=== PATIENT | male | born 1960 | race Caucasian/White ===

== ENCOUNTER 2017-02-17 07:55 | Emergency (ER) | payer MEDICAID ==
[~2017-02-17] VITALS: Ht 182.9 cm; Wt 95.3 kg
--- NOTE | 2017-02-17 07:55 | NUR ---
Patient was BIB [place] [employer] and taken to bed 11.
[2017-02-17 08:07] VITALS: BP 161/102
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
[2017-02-17 08:45] LABS: HEMOGLOBIN 17.3 g/dL (12.0-18.0); MEAN CORPUSCULAR HEMOGLOBIN 31 pg (27-31); MEAN CORPUSCULAR HGB CONC 33 g/dL (33-37); MEAN CORPUSCULAR VOLUME 93 fL (80-94); PLATELET COUNT (AUTO) 352 K/uL (140-450); RED BLOOD CELL COUNT(AUTO) 5.59 MIL/uL (4.20-6.10); WHITE BLOOD COUNT (AUTO) 12.1 K/uL (4.8-10.8)
[2017-02-17 08:54] LABS: CARBON DIOXIDE 31.6 mmol/L (21-32); CREATININE 1.2 mg/dL (0.7-1.3); POTASSIUM 3.4 mmol/L (3.5-5.1)
[2017-02-17 08:56] LABS: ANION GAP 3.2 (8-16)
[2017-02-17 09:07] LABS: EOSINOPHILS % (MANUAL) 3 % (0-4); LYMPHOCYTES % (MANUAL) 7 % (20-46); MONOCYTES % (MANUAL) 7 % (5-12)
--- NOTE | 2017-02-17 09:18 | NUR ---
PT SLEEPING;NO ACUTE DISTRESS NOTED;WILL CONTINUE TO MONITOR PT.
--- NOTE | 2017-02-17 09:23 | NUR ---
PT STATES HE CAN'T GIVE URINE AT THIS TIME;
--- NOTE | 2017-02-17 09:26 | NUR ---
WENT TO CT SCAN ACCOMPANIED BY ROMAN GARCIA.
--- NOTE | 2017-02-17 09:57 | NUR ---
[facility]
--- NOTE | 2017-02-17 10:10 | NUR ---
[place] [employer] AT BEDSIDE.
[2017-02-17 11:13] LABS: BARBITURATE, URINE NEG. ng/ml (NEG <=200); BENZODIAZEPINE, URINE NEG. ng/mL (NEG <=200); CANNABINOID, URINE NEG. ng/mL (NEG <=50); COCAINE, URINE POS. ng/mL (NEG <=300); OPIATE, URINE NEG. ng/mL (NEG <=2000); PHENCYCLIDINE SCREEN,URINE NEG. ng/mL (NEG <=25)
--- NOTE | 2017-02-17 11:26 | NUR ---
PT SLEEPING;NO ACUTE DISTRESS NOTED;PD AT BEDSIDE.WILL CONTINUE TO MONITOR PT.
[2017-02-17 12:18] VITALS: BP 144/77
--- NOTE | 2017-02-17 12:18 | NUR ---
Patient discharged with v/s stable. Written and verbal after care instructions given and explained. Patient verbalized understanding. Ambulatory with steady gait. All questions addressed prior to discharge. Advised to follow up with PMD.
== END 2017-02-17 12:18 ==
LOC: MED 07:55
DX: Z02.89 Encounter for other administrative examinations (principal); S39.81XA Other specified injuries of abdomen, initial encounter; S00.81XA Abrasion of other part of head, initial encounter; S29.8XXA Other specified injuries of thorax, initial encounter; S09.8XXA Other specified injuries of head, initial encounter; F14.90 Cocaine use, unspecified, uncomplicated; F19.90 Other psychoactive substance use, unspecified, uncomplicated; E87.1 Hypo-osmolality and hyponatremia; H57.02 Anisocoria; F17.210 Nicotine dependence, cigarettes, uncomplicated; Y04.2XXA Assault by strike against or bumped into by another person, initial encounter; Y93.89 Activity, other specified; Y92.89 Other specified places as the place of occurrence of the external cause; Y99.8 Other external cause status
CPT/HCPCS: 36415; 70450; 71260; 72125; 74177; 80048; 80305; 85025; 99285; G0482; Q9967

== ENCOUNTER 2018-08-16 12:54 | Inpatient (IN) | payer MEDICAID ==
[~2018-08-16] VITALS: Ht 182.9 cm; Wt 90.7 kg
[2018-08-16 13:10] VITALS: BP 161/74
--- NOTE | 2018-08-16 13:10 | NUR ---
PATIENT PRESENTS TO ED WITH C/O CELLULITIS TO BOTH ARMS. LEFT ARM IS RED AND WARM TOUCH FROM FINGERS TO ELBOW. RT ARM HAS CELLULITS NODULE IN MIDDLE OF FOREARM WITH FLUID FILLED SAC. PATIENT STATES PAIN IS 10/10. +CMS/PULSES INTACT. PT AAOX4 WITH EVEN AND STEADY GAIT; LUNGS CLEAR BL; HR EVEN AND REGULAR; HOB ELEVATED; BEDRAILS UP X2; BED DOWN. ER MD MADE AWARE OF PT STATUS.
--- NOTE | 2018-08-16 13:29 | NUR ---
PATIENT TO BED 6 AT THIS TIME.
[2018-08-16] MEDS ORDERED: NACL 0.9% 1,000 ML IV ONE (13:53)
[2018-08-16] MEDS ORDERED: LIDOCAINE/EPI 1% 1:100000 20 ML VIAL INJ ONE (13:55)
[2018-08-16] MEDS ORDERED: VANCOMYCIN 1,000 MG in DEXTROSE 5% 250 ML IV ONE (13:55)
[2018-08-16] MEDS ORDERED: PIPERACILLIN/TAZOBACTAM 3.375 GM in DEXTROSE 5% 50 ML IV ONE (13:55)
[2018-08-16] MEDS ORDERED: KETOROLAC 30 MG/ML VIAL IVP ONE (13:55)
[2018-08-16 14:36] LABS: BASOPHILS # (AUTO) 0.1 K/uL (0.00-0.22); BASOPHILS % (AUTO) 0.5 % (0.0-2.0); EOSINOPHILS # (AUTO) 0.1 K/uL (0-0.4); EOSINOPHILS % (AUTO) 0.8 % (0.0-4.0); HEMATOCRIT 37.6 % (36-52); HEMOGLOBIN 12.8 g/dL (12.0-18.0); LYMPHOCYTES # (AUTO) 1.1 K/uL (2.0-11.5); LYMPHOCYTES % (AUTO) 6.9 % (20.5-51.1); MEAN CORPUSCULAR HEMOGLOBIN 29 pg (27-31); MEAN CORPUSCULAR HGB CONC 34 g/dL (33-37); MEAN CORPUSCULAR VOLUME 85.8 fL (80-94); MONOCYTES # (AUTO) 1.1 K/uL (0.8-1.0); MONOCYTES % (AUTO) 6.7 % (1.7-9.3); NEUTROPHILS # (AUTO) 13.5 K/uL (1.8-7.7); NEUTROPHILS % (AUTO) 85.1 % (42.2-75.2); PLATELET COUNT (AUTO) 320 K/uL (140-450); RED BLOOD CELL COUNT(AUTO) 4.38 MIL/uL (4.20-6.10); WHITE BLOOD COUNT (AUTO) 15.9 K/uL (4.8-10.8)
[2018-08-16] MEDS ORDERED: PIPERACILLIN/TAZOBACTAM 3.375 GM VIAL IV ONE (14:46)
[2018-08-16 15:08] LABS: ANION GAP 8.6 (8-16); CARBON DIOXIDE 28.4 mmol/L (21-32); CREATININE 0.8 mg/dL (0.7-1.3); PROTHROMBIN TIME 10.3 secs (10.8-13.4)
[2018-08-16 15:14] LABS: ALBUMIN 2.8 g/dL (3.4-5.0); TOTAL BILIRUBIN 0.8 mg/dL (0.0-1.0)
[2018-08-16] MEDS ORDERED: VANCOMYCIN 1,000 MG VIAL ONE (15:44)
--- NOTE | 2018-08-16 16:10 | NUR ---
I&D Procedure done by REJI Morgan amt of bleeding noted. 04/17 " DUSTY FORM PACKING USED. Pt TOLERATED PROCEDURE WELL.
[2018-08-16] MEDS: NACL 0.9% 1,000 ML IV SCH (16:21)
[2018-08-16] MEDS ORDERED: DOCUSATE SODIUM 100 MG GELCAP PO PRN (16:25)
[2018-08-16] MEDS ORDERED: ONDANSETRON 4 MG/2 ML VIAL IM/IVP PRN (16:25)
[2018-08-16] MEDS ORDERED: LORazepam 2 MG/ML VIAL IM/IVP PRN (16:25)
[2018-08-16] MEDS ORDERED: ZOLPIDEM 5 MG TAB PO PRN (16:25)
[2018-08-16] MEDS ORDERED: KCL 20 MEQ/WATER INJ PREMIX 100 ML IV ONE (16:30)
[2018-08-16] MEDS ORDERED: VANCOMYCIN PER PHARMACY MC PRN (16:30)
[2018-08-16] MEDS ORDERED: cefTRIAXone 2,000 MG in DEXTROSE 5% 100 ML IV SCH (16:50)
--- NOTE | 2018-08-16 17:05 | NUR ---
RECEIVED PT REPORT FROM ED NURSE LISA. PT IS AWAKE AND ALERT X 4, AND IS AMBULATORY. PT IS ON ROOM AIR. PT WAS PLACED ON TELEMETRY MONITORING. MRSA SWAB TAKEN. THE LEFT ARM IS NOTED TO BE REDDENED AND SWOLLEN; RIGHT ARM HAS A DRY DRESSING WITH NOTED MINIMAL DRAINAGE OVER THE I&D SITE THAT WAS PERFORMED IN THE ED. VITAL SIGNS UPON ADMISSION: BP 159/86, HR 81, O2 100%, TEMP 98.4, RR 18. PT IS C/O 9/10 PAIN IN THE LUE, WILL MEDICATE SOON APPROPRIATE. PT ORIENTED TO ROOM AND GIVEN A CALL LIGHT WITHIN REACH. WILL CONTINUE TO MONITOR.
[2018-08-16 17:10] VITALS: BP 159/86
[2018-08-16 17:10] LABS: CHOL/HDL RATIO 2.1 (1-4.5); PHOSPHORUS 2.5 mg/dL (2.5-4.9); THYROID STIMULATING HORMONE 0.4 uIU/mL (0.34-3.74)
--- NOTE | 2018-08-16 17:10 | NUR ---
Pt admitted to telemetry floor Rm 106A, report given to RIMA Palomo . Transfer of care at this time.
--- NOTE | 2018-08-16 17:26 | NUR ---
PT SEEN BY DR DORSEY.
--- NOTE | 2018-08-16 17:34 | NUR ---
OBTAINED PT'S CONSENT FOR LUE CT SCAN WITH CONTRAST. RADIOLOGY NOTIFIED THAT PT IS READY FOR STAT CT.
--- NOTE | 2018-08-16 17:50 | NUR ---
PT OFF THE FLOOR FOR CT SCAN
[2018-08-16] MEDS ORDERED: NACL 0.9% IRR 250 ML BOTTLE IR PRN (18:10)
--- NOTE | 2018-08-16 18:17 | NUR ---
PT BACK ON UNIT FROM CT SCAN
--- NOTE | 2018-08-16 19:05 | NUR ---
URINE SAMPLE COLLECTED AND TAKEN TO LAB PER MD ORDER.
--- NOTE | 2018-08-16 19:20 | NUR ---
PT ENDORSED TO SENIOR MEDICAL DIRECTOR NURSE IN STABLE CONDITION.
--- NOTE | 2018-08-16 19:23 | NUR ---
RECEIVED REPORT FROM AM NURSEALDO. PT LAYING IN BED, AWAKE WITH NO VISIBLE SIGNS OF DISTRESS. PT AMBULATORY. IV 20G RT LOWER FA INFUSING WELL. S/P I/D OF RT FA ABSCESS. SAFETY PRECAUTIONS IN PLACE. CALL LIGHT WITH IN REACH.
--- NOTE | 2018-08-16 19:30 | NUR ---
DR ADAME IS AWARE OF CRITICAL CT SCAN OF PT'S LUE. DR ADAME ALSO AWARE OF PT'S ELEVATED BLOOD PRESSURE UPON ADMISSION TODAY.
[2018-08-16 19:41] LABS: APPEARANCE,URINE CLEAR (CLEAR); BILIRUBIN,URINE 1+ (NEGATIVE); BLOOD, URINE NEGATIVE (NEGATIVE); COLOR,URINE ORANGE (YELLOW); LEUKOCYTE ESTERASE ,URINE NEGATIVE (NEGATIVE); NITRITE, URINE NEGATIVE (NEGATIVE); PH,URINE 6.5 (5.0-9.0); UGLUCOSE TRACE (NEGATIVE)
[2018-08-16 19:50] LABS: BARBITURATE, URINE NEG. ng/ml (NEG <=200); BENZODIAZEPINE, URINE NEG. ng/mL (NEG <=200); CANNABINOID, URINE NEG. ng/mL (NEG <=50); COCAINE, URINE NEG. ng/mL (NEG <=300); OPIATE, URINE POS. ng/mL (NEG <=2000); PHENCYCLIDINE SCREEN,URINE NEG. ng/mL (NEG <=25)
[2018-08-16 20:00] VITALS: BP 137/77
[2018-08-16] MEDS ORDERED: PIPERACILLIN/TAZOBACTAM 3.375 GM in DEXTROSE 5% 50 ML IV SCH (21:00)
[2018-08-16] MEDS: KETOROLAC 30 MG/ML VIAL IVP PRN (22:41)
[2018-08-17] VITALS: BP 163/65
--- NOTE | 2018-08-17 00:10 | NUR ---
SPOKE WITH DR. ADAME REGARDING PT BP OF 163/65. DR ADVISED TO CONTINUE TO MONITOR. WILL CONTINUE TO MONITOR
[2018-08-17] MEDS ORDERED: VANCOMYCIN 1,500 MG in DEXTROSE 5% 500 ML IV SCH (01:00)
[2018-08-17] MEDS ORDERED: VANCOMYCIN 1,000 MG VIAL ONE (01:51)
[2018-08-17 04:00] VITALS: BP 173/83
--- NOTE | 2018-08-17 04:11 | NUR ---
SPOKE TO DR. ADAME ABOUT PTS BP 173/83 AND PTS PAIN LEVEL 01/21. ORDERS TO FOLLOW.
[2018-08-17] MEDS: MORPHINE SULFATE 2 MG/ML SYR IVP PRN ×3 (04:33→19:33)
[2018-08-17] MEDS: KETOROLAC 30 MG/ML VIAL IVP PRN (04:36)
[2018-08-17] MEDS: ACETAMINOPHEN 325 MG TAB PO PRN (04:37)
--- NOTE | 2018-08-17 04:37 | NUR ---
TYLENOL GIVEN FOR TEMP OF 100.5
--- NOTE | 2018-08-17 05:37 | NUR ---
TEMP REASSESSED AT THIS TIME, CURRENT TEMP 98.6
[2018-08-17 06:37] LABS: BASOPHILS # (AUTO) 0.1 K/uL (0.00-0.22); BASOPHILS % (AUTO) 0.5 % (0.0-2.0); EOSINOPHILS # (AUTO) 0.1 K/uL (0-0.4); HEMATOCRIT 38.5 % (36-52); HEMOGLOBIN 13.1 g/dL (12.0-18.0); LYMPHOCYTES # (AUTO) 1.4 K/uL (2.0-11.5); LYMPHOCYTES % (AUTO) 9.7 % (20.5-51.1); MEAN CORPUSCULAR HEMOGLOBIN 29 pg (27-31); MEAN CORPUSCULAR HGB CONC 34 g/dL (33-37); MEAN CORPUSCULAR VOLUME 85.8 fL (80-94); MONOCYTES # (AUTO) 1.1 K/uL (0.8-1.0); MONOCYTES % (AUTO) 7.9 % (1.7-9.3); NEUTROPHILS # (AUTO) 11.7 K/uL (1.8-7.7); NEUTROPHILS % (AUTO) 80.9 % (42.2-75.2); PLATELET COUNT (AUTO) 323 K/uL (140-450); RED BLOOD CELL COUNT(AUTO) 4.49 MIL/uL (4.20-6.10); RED CELL DISTRIBUTION WIDTH 14.4 % (11.6-13.7); WHITE BLOOD COUNT (AUTO) 14.4 K/uL (4.8-10.8)
--- NOTE | 2018-08-17 07:00 | NUR ---
CONSENT SIGNED FOR I/D OF LT FA ABSCESS BY DR. HANEY. PT IS NPO. PT WILL BE ENDORSED TO THE DAY SHIFT NURSE FOR CARE.
--- NOTE | 2018-08-17 07:15 | NUR ---
RECEIVED REPORT FROM DISPATCHER MAINTENANCE NURSE. PT IS AAOX4, RIGHT ARM I&D WAS DONE IN ER, DRESSING CLEAN AND INTACT. MADE PT AWARE THE HE IS GOING TO HAVE LEFT ARM I&D TODAY, NPO FOR NOW. PT LAYING IN BED, NO SIGNS OF DISTRESS IN ROOM AIR. PT AMBULATORY AT BASELINE. IV CATH TO RIGHT FA, 20G, INTACT, INFUSING WELL. SAFETY PRECAUTIONS IN PLACE. CALL LIGHT WITH IN REACH.
[2018-08-17 07:42] LABS: CARBON DIOXIDE 25.9 mmol/L (21-32); CREATININE 0.8 mg/dL (0.7-1.3)
[2018-08-17 07:44] LABS: POTASSIUM 2.9 mmol/L (3.5-5.1)
[2018-08-17 07:47] LABS: PHOSPHORUS 2.5 mg/dL (2.5-4.9)
[2018-08-17 08:00] VITALS: BP 164/84
[2018-08-17] MEDS: LACTOBACILLUS RHAMNOSUS GG 1 EACH CAP PO SCH (08:36)
--- NOTE | 2018-08-17 08:43 | NUR ---
PATIENT HAS BEEN SCREENED AND CATEGORIZED HIGH NUTRITION RISK. PATIENT WILL BE SEEN WITHIN 1-2 DAYS OF ADMISSION. 08/17/18-08/18/[address]
[2018-08-17] MEDS: NACL 0.9% 1,000 ML IV SCH ×2 (09:01→17:38)
--- NOTE | 2018-08-17 09:01 | NUR ---
HEPARIN HELD, PT MIGHT HAVE I&D TODAY.
[2018-08-17] MEDS: KCL 20 MEQ/WATER INJ PREMIX 100 ML IV SCH ×2 (09:11→15:03)
[2018-08-17] MEDS ORDERED: LIDOCAINE 2% 100 MG/5 ML SYR IVP ONE (09:38)
[2018-08-17] MEDS ORDERED: PROPOFOL 200 MG/20 ML VIAL IV ONE (09:38)
[2018-08-17] MEDS ORDERED: SEVOFLURANE 250 ML BTL INH ONE (09:38)
--- NOTE | 2018-08-17 09:38 | NUR ---
PT TAKEN BY OR NURSE. NO S/S OF ACUTE RESPIRATORY DISTRESS IN RM AIR.
[2018-08-17] MEDS ORDERED: HYDROGEN PEROXIDE 3% 240 ML BTL TP ONE (09:41)
[2018-08-17] MEDS ORDERED: MIDAZOLAM 2 MG/2 ML VIAL ONE (09:56)
[2018-08-17] MEDS ORDERED: fentaNYL 0.05 MG/ML VIAL ONE (09:56)
--- NOTE | 2018-08-17 09:57 | NUR ---
WOUND CARE EVAL. PENDING, PT. IS NOT AVAILABLE THIS TIME FOR WOUND EVAL. AND PER PRIMARY RN PT IS SCHEDULED FOR SURGERY I&D THIS AM. PT IS OKAY TO BE VISITED AFTER PROCEDURE.
[2018-08-17] MEDS ORDERED: ONDANSETRON 4 MG/2 ML VIAL IVP PRN (10:10)
[2018-08-17] MEDS: HYDROmorphone 1 MG/ML AMP IVP PRN ×8 (11:30→12:05)
[2018-08-17] MEDS ORDERED: HYDROmorphone PFS 2 MG/ML SYR ONE ×2 (11:32→11:57)
[2018-08-17] MEDS ORDERED: KETOROLAC 30 MG/ML VIAL IVP SCH (12:00)
[2018-08-17] MEDS ORDERED: KETOROLAC 30 MG/ML VIAL ONE (12:02)
[2018-08-17 12:45] VITALS: BP 142/79
[2018-08-17 12:51] LABS: BASOPHILS % (AUTO) 0.3 % (0.0-2.0); EOSINOPHILS # (AUTO) 0.1 K/uL (0-0.4); EOSINOPHILS % (AUTO) 0.4 % (0.0-4.0); HEMATOCRIT 36.6 % (36-52); HEMOGLOBIN 12.5 g/dL (12.0-18.0); LYMPHOCYTES # (AUTO) 1.1 K/uL (2.0-11.5); LYMPHOCYTES % (AUTO) 7.8 % (20.5-51.1); MEAN CORPUSCULAR HEMOGLOBIN 29 pg (27-31); MEAN CORPUSCULAR HGB CONC 34 g/dL (33-37); MEAN CORPUSCULAR VOLUME 85.8 fL (80-94); MONOCYTES # (AUTO) 1.3 K/uL (0.8-1.0); MONOCYTES % (AUTO) 8.6 % (1.7-9.3); NEUTROPHILS # (AUTO) 12.1 K/uL (1.8-7.7); NEUTROPHILS % (AUTO) 82.9 % (42.2-75.2); PLATELET COUNT (AUTO) 311 K/uL (140-450); RED BLOOD CELL COUNT(AUTO) 4.27 MIL/uL (4.20-6.10); RED CELL DISTRIBUTION WIDTH 14.1 % (11.6-13.7); WHITE BLOOD COUNT (AUTO) 14.6 K/uL (4.8-10.8)
[2018-08-17 13:00] LABS: ANION GAP 7.8 (8-16); CARBON DIOXIDE 29.3 mmol/L (21-32); CREATININE 0.9 mg/dL (0.7-1.3); POTASSIUM 3.1 mmol/L (3.5-5.1)
--- NOTE | 2018-08-17 13:05 | NUR ---
PT IS BACK FROM OR, VITALS TAKEN. LEFT ARM HAS NEW DRESSING, CLEAN AND INTACT.
--- NOTE | 2018-08-17 13:20 | NUR ---
PT C/O PAIN ON RIGHT FA IV SITE. SEEMS A LITTLE SWELLING, FLUSHED AND NO BLOOD RETURN. CHARGE NURSE SOLA STARTED A NEW IV ON THE RIGHT UA, 22G. PT TOLERATED WELL. LEFT ARM S/P I&D, DRESSING STILL CLEAN AND DRY, ELEVATED WITH PILLOW.
[2018-08-17] MEDS: VANCOMYCIN 1GM/DEXT 5% PREMIX 200 ML IV SCH ×2 (13:31→20:40)
--- NOTE | 2018-08-17 13:50 | NUR ---
PT WOKE UP AND ATE HIS LUNCH. NO S/S OF DISTRESS AT THIS TIME. PAIN IS TOLERABLE AT THIS TIME.
--- NOTE | 2018-08-17 14:45 | NUR ---
08/17/18 RD INITIAL ASSESSMENT COMPLETED PLEASE REFER TO NUTRITION ASSESSMENT UNDER CARE ACTIVITY FOR ESTIMATED NUTRITIONAL NEEDS. 1. CONTINUE REGULAR DIET TOLERATED 2. RECOMMEND BRAULIO QD 3. RD TO FOLLOW-UP 5-7 DAYS, LOW RISK [address]UN[address]
--- NOTE | 2018-08-17 15:40 | NUR ---
LEFT ARM DRESSING WAS SATURATED WITH FLUID, SLIGHT PINK. REMOVED THE MOST OUTER DRESSING. REINFORCED WITH ABD PAD AND GOLDEN GAUZES. PT TOLERATED OK.
[2018-08-17 16:00] VITALS: BP 131/74
[2018-08-17] MEDS ORDERED: POTASSIUM CHLORIDE 10 MEQ TABER PO SCH (17:30)
[2018-08-17] MEDS: HYDROcodone/APAP 5/325 MG 1 TAB TAB PO PRN ×2 (17:38→22:07)
--- NOTE | 2018-08-17 19:30 | NUR ---
RECEIVED BEDSIDE REPORT FROM DAY SHIFT NURSE. PATIENT AWAKE, ALERT, AND COOPERATIVE. RESPIRATION EVEN UNLABORED ON ROOM AIR. NO DISTRESS NOTED. SKIN IS WARM AND DRY. BILATERAL ARM DRESSING INTACT AND DRY. IV PATENT AND INTACT. PLAN OF CARE WAS DISCUSSED. ALL SAFETY MEASURES IN PLACE. CALL LIGHT WITHIN REACH AND VERBALIZES ITS USE. WILL CONTINUE TO MONITOR
--- NOTE | 2018-08-17 19:35 | NUR ---
REPORT GIVEN TO CAD DRAFTSMAN RN. PT IN STABLE CONDITION.
[2018-08-17 20:00] VITALS: BP 168/74
--- NOTE | 2018-08-17 20:00 | NUR ---
INITIAL ASSESSMENT DONE. VITALS WERE TAKEN. PATIENT STILL IN PAIN AFTER MEDICATED. WILL CONTINUE TO MONITOR
--- NOTE | 2018-08-17 21:00 | NUR ---
ALL SCHEDULED MEDS WERE GIVEN AND TOLERATED THEM WELL. WILL CONTINUE TO MONITOR
--- NOTE | 2018-08-17 21:03 | NUR ---
PATIENT DID HIS INCENTIVE SPIROMETER AT 3000 CC TIMES 10 BREATHS. EXCELLENT EFFORT
--- NOTE | 2018-08-17 22:00 | NUR ---
PATIENT IN BED WATCHING TV RESPIRATION EVEN UNLABORED ON ROOM AIR. COMPLAINED OF LEFT ARM PAIN 6/10. PRN PAIN MED ADMINISTERED. WILL CONTINUE TO MONITOR.
--- NOTE | 2018-08-17 23:00 | NUR ---
PATIENT IN BED WATCHING TV RESPIRATION EVEN UNLABORED ON ROOM AIR. NO DISTRESS NOTED. WILL CONTINUE TO MONITOR
[2018-08-17] MEDS ORDERED: ENALAPRILAT 2.5 MG/2 ML VIAL IVP PRN (23:35)
[2018-08-17] MEDS ORDERED: MORPHINE SULFATE 2 MG/ML SYR IVP SCH (23:50)
[2018-08-18] VITALS: BP 172/87
--- NOTE | 2018-08-18 | NUR ---
VITALS WERE TAKEN. PATIENT BLOOD PRESSURE 172/87 NOTIFIED MD. ROWE ADMINISTERED PER ORDER. ALSO PATIENT COMPLAINED OF 9/10 LEFT ARM PAIN. PRN PAIN MED GIVEN PER ORDER. WILL CONTINUE TO MONITOR
[2018-08-18] MEDS ORDERED: HYDROmorphone 1 MG/ML AMP IVP PRN ×2 (01:10→01:40)
--- NOTE | 2018-08-18 01:20 | NUR ---
PATIENT LEFT ARM DRESSING WAS SATURATED WITH FLUID, SLIGHT PINK. REMOVED THE MOST OUTER DRESSING. REINFORCED WITH ABD PAD AND GOLDEN GAUZES. PT TOLERATED OK.
[2018-08-18] MEDS ORDERED: KETOROLAC 30 MG/ML VIAL IM SCH (01:30)
[2018-08-18] MEDS ORDERED: ENALAPRILAT 2.5 MG/2 ML VIAL IVP SCH (01:30)
--- NOTE | 2018-08-18 01:30 | NUR ---
PATIENT COMPLAINED OF PAIN 9/10 LEFT ARM. PRN PAIN MEDS GIVEN PER ORDER. WILL CONTINUE TO MONITOR
[2018-08-18] MEDS ORDERED: hydrALAZINE 20 MG/ML VIAL IVP PRN (01:45)
[2018-08-18] MEDS ORDERED: HYDROmorphone 1 MG/ML AMP IVP SCH ×2 (02:00→15:30)
[2018-08-18] MEDS ORDERED: MORPHINE SULFATE 2 MG/ML SYR IVP PRN (02:30)
[2018-08-18] MEDS ORDERED: HYDROcodone/APAP 10/325 MG 1 TAB TAB PO PRN (02:30)
--- NOTE | 2018-08-18 03:00 | NUR ---
PATIENT SLEEPING RESPIRATION EVEN UNLABORED ON ROOM AIR. NO DISTRESS NOTED. WILL CONTINUE TO MONITOR.
--- NOTE | 2018-08-18 04:00 | NUR ---
PATIENT REFUSED VITALS TO BE TAKEN. EDUCATED THE RISK AND BENEFITS OF IT X2 STILL REFUSED. WILL CONTINUE TO MONITOR
[2018-08-18] MEDS: VANCOMYCIN 1GM/DEXT 5% PREMIX 200 ML IV SCH ×3 (04:47→20:37)
--- NOTE | 2018-08-18 06:54 | NUR ---
PATIENT LEFT ARM DRESSING WAS SATURATED WITH FLUID SLIGHT PINK. REMOVED THE OUTER DRESSING AND APPLIED WITH ABD PAD AND GOLDEN GAUZES. WILL CONTINUE TO MONITOR Addendum: 08/18/18 at 0656 by Logan Montemayor RN DUPLICATE
--- NOTE | 2018-08-18 06:54 | NUR ---
LEFT ARM DRESSING WAS SATURATED WITH FLUID, SLIGHT PINK. REMOVED THE MOST OUTER DRESSING. REINFORCED WITH ABD PAD AND GOLDEN GAUZES. PT TOLERATED OK.
--- NOTE | 2018-08-18 07:22 | NUR ---
ENDORSED PATIENT TO DAY SHIFT NURSE. PATIENT CONDITION STABLE.
--- NOTE | 2018-08-18 07:23 | NUR ---
RECEIVED REPORT FROM CUSTOM FEED MILL OPERATOR NURSE. PATIENT LYING DOWN IN BED SLEEPING, AROUSABLE BY VOICE. NO DISTRESS NOTED. PAIN WITHIN TOLERABLE AT THIS TIME. AAOX3, CALM, COOPERATIVE, SKIN COLOR APPROPRIATE TO ETHNICITY, WARM TO TOUCH. HAS LEFT FOREARM AND RIGHT FOREARM S/P I&D, DRESSING DRY AND INTACT. LEFT FOREARM ABSCESS DRESSING WAS REINFORCED BY NIGHT RN. IV SITE INTACT, PATENT, AND INFUSING IVF PER MD ORDERS. REVIEWED PLAN OF CARE WITH PATIENT. PATIENT VERBALIZED UNDERSTANDING. SAFETY MEASURES IN PLACE, CALL LIGHT WITHIN REACH. WILL CONTINUE TO MONITOR.
[2018-08-18 08:00] VITALS: BP 164/96
[2018-08-18 08:09] LABS: BASOPHILS # (AUTO) 0.1 K/uL (0.00-0.22); BASOPHILS % (AUTO) 0.6 % (0.0-2.0); EOSINOPHILS # (AUTO) 0.2 K/uL (0-0.4); EOSINOPHILS % (AUTO) 1.5 % (0.0-4.0); HEMATOCRIT 37.1 % (36-52); HEMOGLOBIN 12.6 g/dL (12.0-18.0); LYMPHOCYTES # (AUTO) 1.6 K/uL (2.0-11.5); LYMPHOCYTES % (AUTO) 15.2 % (20.5-51.1); MEAN CORPUSCULAR HEMOGLOBIN 29 pg (27-31); MEAN CORPUSCULAR HGB CONC 34 g/dL (33-37); MEAN CORPUSCULAR VOLUME 86.4 fL (80-94); MONOCYTES # (AUTO) 0.7 K/uL (0.8-1.0); MONOCYTES % (AUTO) 6.2 % (1.7-9.3); NEUTROPHILS # (AUTO) 8.3 K/uL (1.8-7.7); NEUTROPHILS % (AUTO) 76.5 % (42.2-75.2); PLATELET COUNT (AUTO) 338 K/uL (140-450); RED CELL DISTRIBUTION WIDTH 13.9 % (11.6-13.7); WHITE BLOOD COUNT (AUTO) 10.8 K/uL (4.8-10.8)
[2018-08-18] MEDS ORDERED: LISINOPRIL 5 MG TAB PO SCH (09:00)
[2018-08-18] MEDS: LACTOBACILLUS RHAMNOSUS GG 1 EACH CAP PO SCH (09:15)
--- NOTE | 2018-08-18 09:21 | NUR ---
PATIENT LYING DOWN IN BED SLEEPING, AROUSABLE BY VOICE. NO DISTRESS NOTED. PAIN WITHIN TOLERABLE. SCHEDULED MEDICATIONS DUE GIVEN. WILL CONTINUE TO MONITOR.
[2018-08-18 09:34] LABS: ANION GAP 10.5 (8-16); CARBON DIOXIDE 26.9 mmol/L (21-32); POTASSIUM 3.4 mmol/L (3.5-5.1)
[2018-08-18 09:35] LABS: CREATININE 0.7 mg/dL (0.7-1.3)
[2018-08-18] MEDS: NACL 0.9% 1,000 ML IV SCH (10:30)
[2018-08-18 10:32] LABS: MAGNESIUM 1.9 mg/dL (1.8-2.4); PHOSPHORUS 2.4 mg/dL (2.5-4.9)
[2018-08-18] MEDS ORDERED: POTASSIUM CHLORIDE 10 MEQ TABER PO SCH (11:30)
[2018-08-18 12:00] VITALS: BP 155/90
--- NOTE | 2018-08-18 12:12 | NUR ---
PATIENT LYING DOWN IN BED TALKING TO FAMILY MEMBERS AT BEDSIDE. NO DISTRESS NOTED. PAIN WITHIN TOLERABLE. SCHEDULED MEDICATIONS DUE GIVEN. WILL CONTINUE TO MONITOR.
--- NOTE | 2018-08-18 12:57 | NUR ---
PICC RN CALLED AT [phone] TOLD ASTER REGARDING PICC PLACEMENT ORDER, ON-CALL NURSE ALCIDES WILL BE NOTIFIED PER ASTER.
[2018-08-18] MEDS: KETOROLAC 15 MG/ML VIAL IM PRN ×2 (13:07→19:36)
--- NOTE | 2018-08-18 14:09 | NUR ---
PICC NURSE ON UNIT TO INSERT PICC LINE. WILL CONTINUE TO MONITOR WHEN PROCEDURE COMPLETED.
--- NOTE | 2018-08-18 14:37 | NUR ---
PICC LINE INSERTED. PATIENT TOLERATED WELL. SCHEDULED MEDICATIONS DUE GIVEN. ECHO BEING PERFORMED. WILL CONTINUE TO MONITOR.
[2018-08-18] MEDS: HYDROmorphone 1 MG/ML AMP IVP PRN ×2 (15:05→23:53)
--- NOTE | 2018-08-18 15:19 | NUR ---
NOTIFIED DR. VILLANUEVA AND DR. WEST ON POSSIBLE CRITICAL ECHO FINDINGS
[2018-08-18 16:00] VITALS: BP 145/89
--- NOTE | 2018-08-18 16:15 | NUR ---
WOUND CARE EVALUATION NOTES: REASON FOR EVALUATION: S/P I&D WOUNDS SKIN ASSESSMENT DONE ON THIS 58 Y/O MALE PATIENT ADMITTED TO [facility], WITH INITIAL DIAGNOSIS OF ARM CELLULITIS. I&D DONE TO RIGHT ARM ON ED WITH DR. MURRY ON 08/16/2018 AND LEFT ARM I&D WITH DR. HANEY AT OR ON 08/17/2018. DR. VILLANUEVA AT BED SIDE DURING DRESSING CHANGE. PT. MEDICATED X2 FOR PAIN IN 3O MINUTES, UNABLE TO TOLERATE LEFT ARM DRESSING CHANGE, DRESSING REINFORCE. INITIAL PLAN OF CARE DISCUSSED WITH WHO IS COVERING FOR DR. QUIROGA AND PT. DR. VILLANUEVA/DR. QUIROGA WILL CONTACT DR. HANEY FOR FURTHER INSTRUCTION. PT ABLE TO VERBALIZE UNDERSTANDING. INTEGUMENTARY: -RIGHT ARM SURGICAL WOUND 1X1X0.3CM WITH UNDERMINING 0.3CM, WOUND BED IS PINK AND CLEAN, SMALL AMOUNT SEROUS DRAINAGE, NO ODOR. -LEFT ARM SURGICAL WOUND UNABLE TO ASSESS, PT UNABLE TOLERATE PROCEDURE RECOMMENDATIONS: -CLEANSE RIGHT ARM WITH NS, PAT DRY, PACK WOUND WITH � � IODOFORM AND COVER WITH DRY DRESSING QD AND PRN -LEFT ARM SURGICAL WOUND REINFORCE DRESSING AND PENDING SURGEON FURTHER INSTRUCTIONS RECOMMENDATIONS DISCUSSED WITH PRIMARY RN AND RESIDENT WILL FOLLOW UP PATIENT Q7 DAYS AND PRN. PLEASE CONTACT WOUND CARE NURSE FOR ANY QUESTIONS AND CHANGES IN SKIN CONDITION. Addendum: 08/18/18 at 1641 by Alonso Painter (Grace) RN CORRECTION: -RIGHT ARM SURGICAL WOUND 0.5X0.5X0.3CM WITH UNDERMINING 0.3CM, WOUND BED IS PINK AND CLEAN, SMALL AMOUNT SEROUS DRAINAGE, NO ODOR, RAHUL-WOUND SKIN INTACT.
--- NOTE | 2018-08-18 19:14 | NUR ---
GAVE REPORT TO TUFT MACHINE OPERATOR NURSE FOR CONTINUITY OF CARE. PATIENT IN STABLE CONDITION.
--- NOTE | 2018-08-18 19:15 | NUR ---
RECEIVED REPORT FROM DAY SHIFT NURSE. AAOX4. NO RESP DISTRESS NOTED. PAIN TOLERABLE AT THIS TIME. PT HAS DRESSING TO LEFT AND RIGHT ARM, CLEAN, DRY AND INTACT. PICC LINE TO RIGHT UPPER ARM, DOUBLE LUMEN, PATENT AND INTACT. IV TO RIGHT UPPER ARM #22G, PATENT AND INTACT. DISCUSSED PLAN OF CARE, PT VERBALIZED UNDERSTANDING. SAFETY PRECAUTION IN PLACE. CALL LIGHT WITHIN REACH.
--- NOTE | 2018-08-18 19:36 | NUR ---
PT C/O LEFT ARM PAIN SCALE 5/10. TORADOL 15 MG GIVEN ORDERED FOR MODERATE PAIN.
[2018-08-18 20:00] VITALS: BP 156/82
--- NOTE | 2018-08-18 21:20 | NUR ---
PT ASKED FOR SNACK, SNACK PROVIDED. ALL NEEDS ATTENDED AT THIS TIME.
--- NOTE | 2018-08-18 22:25 | NUR ---
DR. DORSEY CAME IN TO SEE PT. NO C/O PAIN AT THIS TIME.
--- NOTE | 2018-08-18 22:35 | NUR ---
RECEIVED A CALL FROM DR. HANEY. ASKED HOW WAS THE PT DOING. NO NEW ORDER.
--- NOTE | 2018-08-18 23:54 | NUR ---
PT C/O LEFT ARM PAIN 12/22. DILAUDID 1 MG IVP GIVEN ORDERED FOR SEVERE PAIN. PT TOLERATED WELL.
[2018-08-19] VITALS (7 sets, daily range): BP systolic 150–200; BP diastolic 78–93
--- NOTE | 2018-08-19 02:45 | NUR ---
PT SLEEPING. NO S/S OF PAIN. NO S/S OF RESP DISTRESS NOTED. IVF INFUSING WELL.
[2018-08-19] MEDS: VANCOMYCIN 1GM/DEXT 5% PREMIX 200 ML IV SCH ×3 (04:41→20:44)
[2018-08-19] MEDS: ENALAPRILAT 2.5 MG/2 ML VIAL IVP PRN (04:51)
--- NOTE | 2018-08-19 04:51 | NUR ---
PT'S BP 200/78, HR 66. DR. DE LEÓN MADE AWARE AND ORDERED VASOTEC 2.5 MG IVP. PT DENIES CHEST PAIN, SOB, HEADACHE, NAUSEA/VOMITING.
--- NOTE | 2018-08-19 05:15 | NUR ---
V/S CHECKED BP 155/82, HR 62. DR. DE LEÓN MADE AWARE. NO NEW ORDER AT THIS TIME.
[2018-08-19] MEDS: HYDROmorphone 1 MG/ML AMP IVP PRN (05:21)
[2018-08-19] MEDS: NACL 0.9% 1,000 ML IV SCH (06:11)
[2018-08-19] MEDS ORDERED: HYDROmorphone PFS 2 MG/ML SYR IVP PRN ×2 (06:25→07:05)
--- NOTE | 2018-08-19 07:18 | NUR ---
RECEIVED REPORT FROM ABA THERAPIST NURSE. PT IS AAOX4. NO RESP DISTRESS NOTED. PT REPORTS PAIN, WILL MEDICATE. PT HAS DRESSING TO LEFT AND RIGHT ARM, CLEAN, DRY AND INTACT. PICC LINE TO RIGHT UPPER ARM, DOUBLE LUMEN, PATENT AND INTACT. IV TO RIGHT UPPER ARM #22G, PATENT AND INTACT. DISCUSSED PLAN OF CARE, PT VERBALIZED UNDERSTANDING. SAFETY PRECAUTION IN PLACE. CALL LIGHT WITHIN REACH. BED IN LOW POSITION. WILL MONITOR PT CLOSELY.
--- NOTE | 2018-08-19 07:25 | NUR ---
ENDORSED PT TO DAY SHIFT NURSE. PT IN STABLE CONDITION.
[2018-08-19 08:01] LABS: BASOPHILS # (AUTO) 0.1 K/uL (0.00-0.22); BASOPHILS % (AUTO) 0.9 % (0.0-2.0); EOSINOPHILS # (AUTO) 0.3 K/uL (0-0.4); EOSINOPHILS % (AUTO) 3.4 % (0.0-4.0); HEMATOCRIT 39.2 % (36-52); HEMOGLOBIN 13.3 g/dL (12.0-18.0); LYMPHOCYTES # (AUTO) 1.4 K/uL (2.0-11.5); LYMPHOCYTES % (AUTO) 17.1 % (20.5-51.1); MEAN CORPUSCULAR HEMOGLOBIN 29 pg (27-31); MEAN CORPUSCULAR HGB CONC 34 g/dL (33-37); MEAN CORPUSCULAR VOLUME 85.9 fL (80-94); MONOCYTES # (AUTO) 0.6 K/uL (0.8-1.0); MONOCYTES % (AUTO) 7.5 % (1.7-9.3); NEUTROPHILS # (AUTO) 5.8 K/uL (1.8-7.7); NEUTROPHILS % (AUTO) 71.1 % (42.2-75.2); PLATELET COUNT (AUTO) 409 K/uL (140-450); RED BLOOD CELL COUNT(AUTO) 4.56 MIL/uL (4.20-6.10); RED CELL DISTRIBUTION WIDTH 14.4 % (11.6-13.7); WHITE BLOOD COUNT (AUTO) 8.2 K/uL (4.8-10.8)
--- NOTE | 2018-08-19 08:20 | NUR ---
PT BP AT 193/93. WAS AT BEDSIDE AND IS AWARE. WILL GIVE MORNING BP MEDS AND THEN GIVE PRN BP MEDS IF BP IS STILL UNCONTROLLED. PT IN STABLE CONDITION AT THIS TIME. WILL CONTINUE TO MONITOR PT CLOSELY.
[2018-08-19 08:35] LABS: ANION GAP 12.9 (8-16); CARBON DIOXIDE 23.6 mmol/L (21-32); CREATININE 0.7 mg/dL (0.7-1.3); POTASSIUM 3.5 mmol/L (3.5-5.1)
[2018-08-19 08:42] LABS: MAGNESIUM 1.9 mg/dL (1.8-2.4); PHOSPHORUS 3.2 mg/dL (2.5-4.9)
[2018-08-19] MEDS ORDERED: LISINOPRIL 5 MG TAB PO SCH (09:00)
[2018-08-19] MEDS: SODIUM PHOS / POTASSIUM PHOS 1 PKT PDR PO SCH (09:11)
[2018-08-19] MEDS: LISINOPRIL 10 MG TAB PO SCH (09:12)
[2018-08-19] MEDS: LACTOBACILLUS RHAMNOSUS GG 1 EACH CAP PO SCH (09:12)
--- NOTE | 2018-08-19 10:41 | NUR ---
PT BP WAS RECHECKED AND IT IS NOW 130/82. BP WAS TAKEN ON THE RIGHT LOWER EXTREMITY.
[2018-08-19] MEDS: KETOROLAC 15 MG/ML VIAL IVP PRN ×2 (11:36→20:44)
--- NOTE | 2018-08-19 12:41 | NUR ---
PT RESTING IN BED. PT STATES HE STILL FEELS PAIN BUT IT IS NOW TOLERABLE. NO PAIN MEDICATION REQUESTED AT THIS TIME. ALL NEEDS CURRENTLY MET. WILL CONTINUE TO ROUND FREQUENTLY ON PT.
[2018-08-19] MEDS ORDERED: HYDROmorphone PFS 2 MG/ML SYR IVP SCH (13:00)
--- NOTE | 2018-08-19 13:14 | NUR ---
*WOUND CARE ODER*---- CAME IN FOR PT'S FIRST DRESSING CHANGE. I MEDICATED PT BEFORE WOUND CHANGE WAS DONE. PT TOLERATED DRESSING CHANGE WELL. PER DR'S ORDERS, WOUND CARE IS FOLLOWS: REMOVE OLD DRESSING AND USE NORMAL SALINE NEEDED TO MOISTEN DRESSING FOR EASY REMOVAL. CLEANSE WOUND WITH NORMAL SALINE. USING 4X4 GAUZE, ADD WET GAUZE TO WOUND BED, NOT PACKING BUT LAYERED OVER. LIGHTLY PACK SMALLER WOUND AT TOP OF FOREARM WITH ONE 4X4 [address]ZE[address] OTHER DRY 4X4 GAUZE OVER WOUNDS AND WRAP WITH KIRLEX. ADD GIOVANNA WRAP FOR REINFORCEMENT.
--- NOTE | 2018-08-19 15:47 | NUR ---
PT RESTING IN BED. PAIN AT TOLERABLE LEVEL AT THIS TIME. WILL MEDICATE PT WHEN MEDS ARE DUE. ALL OTHER NEEDS CURRENTLY MET. NO REPORTS OF DISTRESS. WILL CONTINUE TO ROUND FREQUENTLY ON PT.
[2018-08-19] MEDS: HYDROmorphone PFS 2 MG/ML SYR IVP PRN (16:20)
--- NOTE | 2018-08-19 17:48 | NUR ---
PT SLEEPING IN BED. NO SIGNS OF PAIN OR DISTRESS AT THIS TIME. WILL CONTINUE TO ROUND FREQUENTLY ON PT. BED IN LOW POSITION, CALL LIGHT WITHIN REACH.
--- NOTE | 2018-08-19 19:27 | NUR ---
ENDORSED PT TO PLASTICS FABRICATOR AND ASSEMBLER FOR CONTINUITY OF CARE. PT IN STABLE CONDITION AT THIS TIME.
--- NOTE | 2018-08-19 19:28 | NUR ---
RECEIVED REPORT FROM DAY SHIFT NURSE. AAOX4. NO SOB. PER PT, PAIN TOLERABLE AT THIS TIME. PT HAS DRESSING TO LEFT ARM AND RIGHT FA, CLEAN, DRY AND INTACT. PICC LINE TO RIGHT UPPER ARM, DOUBLE LUMEN, PATENT AND INTACT. IV TO RIGHT UPPER ARM #22G, PATENT AND INTACT. DISCUSSED PLAN OF CARE, PT VERBALIZED UNDERSTANDING. SAFETY PRECAUTION IN PLACE. CALL LIGHT WITHIN REACH.
--- NOTE | 2018-08-19 20:45 | NUR ---
PT C/O LEFT ARM PAIN SCALE 6/10. TORADOL 15 MG IVP GIVEN. PT TOLERATED WELL.
--- NOTE | 2018-08-19 22:38 | NUR ---
PT LYING IN BED, WATCHING TV. NO C/O PAIN AT THIS TIME. NO SOB NOTED. ALL NEEDS ATTENDED AT THIS TIME.
[2018-08-20] VITALS (8 sets, daily range): BP systolic 132–223; BP diastolic 84–99
[2018-08-20] MEDS: HYDROmorphone PFS 2 MG/ML SYR IVP PRN ×2 (00:15→06:29)
--- NOTE | 2018-08-20 00:15 | NUR ---
PT C/O ARM PAIN 11/21. DILAUDID 1 MG IVP GIVEN. PT TOLERATED WELL.
--- NOTE | 2018-08-20 02:05 | NUR ---
PT SLEEPING. NO S/S OF RESP DISTRESS. NO S/S OF PAIN. IVF INFUSING WELL.
[2018-08-20] MEDS: NACL 0.9% 1,000 ML IV SCH ×2 (02:10→15:08)
--- NOTE | 2018-08-20 04:20 | NUR ---
PT SLEEPING BUT WAKES EASILY. RESP EVEN AND UNLABORED. NO S/S OF PAIN. CALL LIGHT WITHIN REACH.
[2018-08-20] MEDS: VANCOMYCIN 1GM/DEXT 5% PREMIX 200 ML IV SCH ×3 (04:57→20:14)
--- NOTE | 2018-08-20 06:30 | NUR ---
PT C/O LEFT ARM PAIN 11/21. DILAUDID 1 MG IVP GIVEN ORDERED FOR SEVERE PAIN.
--- NOTE | 2018-08-20 07:15 | NUR ---
ENDORSED PT TO DAY SHIFT NURSE. PT IN STABLE CONDITION.
--- NOTE | 2018-08-20 07:16 | NUR ---
RECEIVED BEDSIDE REPORT FROM BABBITT SPINNER NURSE. PATIENT IS AWAKE, ALERT, ORIENTED X4 , NOT IN DISTRESS ON RA. PHIL PICC LINE DOUBLE LUMEN INFUSING NS AT 50, PHIL 22G SL. BOTH CLEAN, DRY AND INTACT. PATIENT AMBULATES, HES CONTINENT. L ARM DEBRIDEMENT, DRESSING IS CLEAN AND DRY, R FA I&D CLEAN AND DRY. TELE MONITOR IN PLACE. CALL LIGHT WITHIN REACH, WILL CONTINUE TO MONITOR THE PATIENT.
[2018-08-20 07:42] LABS: BASOPHILS # (AUTO) 0.1 K/uL (0.00-0.22); BASOPHILS % (AUTO) 1.1 % (0.0-2.0); EOSINOPHILS # (AUTO) 0.4 K/uL (0-0.4); EOSINOPHILS % (AUTO) 4.9 % (0.0-4.0); HEMATOCRIT 39.8 % (36-52); HEMOGLOBIN 13.7 g/dL (12.0-18.0); LYMPHOCYTES # (AUTO) 2.2 K/uL (2.0-11.5); LYMPHOCYTES % (AUTO) 26.8 % (20.5-51.1); MEAN CORPUSCULAR HEMOGLOBIN 29 pg (27-31); MEAN CORPUSCULAR HGB CONC 34 g/dL (33-37); MEAN CORPUSCULAR VOLUME 85.5 fL (80-94); MONOCYTES # (AUTO) 0.8 K/uL (0.8-1.0); MONOCYTES % (AUTO) 10.1 % (1.7-9.3); NEUTROPHILS # (AUTO) 4.7 K/uL (1.8-7.7); NEUTROPHILS % (AUTO) 57.1 % (42.2-75.2); PLATELET COUNT (AUTO) 420 K/uL (140-450); RED BLOOD CELL COUNT(AUTO) 4.66 MIL/uL (4.20-6.10); RED CELL DISTRIBUTION WIDTH 14.2 % (11.6-13.7); WHITE BLOOD COUNT (AUTO) 8.2 K/uL (4.8-10.8)
[2018-08-20 07:45] LABS: ANION GAP 11.2 (8-16); CARBON DIOXIDE 27.9 mmol/L (21-32); CREATININE 0.8 mg/dL (0.7-1.3); POTASSIUM 4.1 mmol/L (3.5-5.1)
[2018-08-20 07:56] LABS: PHOSPHORUS 3.1 mg/dL (2.5-4.9)
[2018-08-20] MEDS: SODIUM PHOS / POTASSIUM PHOS 1 PKT PDR PO SCH (09:01)
[2018-08-20] MEDS: LACTOBACILLUS RHAMNOSUS GG 1 EACH CAP PO SCH (09:01)
[2018-08-20] MEDS: LISINOPRIL 10 MG TAB PO SCH (09:01)
[2018-08-20] MEDS: ENALAPRILAT 2.5 MG/2 ML VIAL IVP PRN ×2 (09:10→20:08)
[2018-08-20] MEDS: KETOROLAC 15 MG/ML VIAL IVP PRN ×2 (09:12→15:13)
--- NOTE | 2018-08-20 09:17 | NUR ---
ADMINISTERED MEDS INCLUDING PRN PAIN MED AND BP MED PATIENT EDUCATED ON SIDE EFFECTS. TOLERATED WELL WILL CONTINUE TO MONITOR.
--- NOTE | 2018-08-20 11:17 | NUR ---
patient is resting. no signs of distress. will continue to monitor
--- NOTE | 2018-08-20 13:00 | NUR ---
PATIENT IS RESTING. NO SIGNS OF DISTRESS. WILL CONTINUE TO MONITOR
[2018-08-20] MEDS ORDERED: LISINOPRIL 10 MG TAB PO SCH (15:00)
--- NOTE | 2018-08-20 15:00 | NUR ---
PATIENT IN NO SIGNS OF DISTRESS. BED IN LOW POSITION. WILL CONTINUE TO MONITOR
--- NOTE | 2018-08-20 16:24 | NUR ---
CONTACTED MOHIT OF [facility] AT [phone] REGARDING SNF PLACEMENT REFERRALS. LISTS OF FACILITIES TO BE CONTACTED PROVIDED TO THIS PSYCHOLOGIST ENGINEERING. REFERRALS FAXED TO [phone]. PER [facility] - [phone], NO BEDS AVAILABLE AT THIS TIME. LEFT MESSAGE TO [facility] AT [phone]. AWAITING FOR CALL BACK. SENT REFERRAL TO [facility] AT [phone]. PER LOI OSD CLERK WILL REVIEW REFERRALS. REFERRAL SENT TO [facility] AT [phone]. PER WHITLEY OSD CLERK, WILL REVIEW. PER ARIELA, ADMISSION COORDINATOR AT [facility]. WILL REVIEW FAXED ([phone]) REFERRAL. PER MAY, OSD CLERK AT [facility] AT [phone]. WILL REVIEW FAXED ([phone]) REFERRAL CONTACTED JAKE WALTERS AT [phone], TO INQUIRE MORE FACILITIES TO CONTACT. LISTS WAS PROVIDED TO ME. PER BOB CARBAJAL OF [facility] ([phone]), THEY ARE NOT CONTRACTED WITH INSURANCE AND ONLY CONTRACTED WITH [employer]. PER COLETTE, OSD CLERK AT [facility] ([phone]), WILL REVIEW FAXED ([phone]) REFERRAL PER SACHI ([phone]) OSD CLERK AT [facility], WILL REVIEW FAXED ([phone]) REFERRAL PER VIRGILIO ([phone]) OSD CLERK AT [facility], NO BEDS AVAILABLE AT THIS TIME. BUT WILL REVIEW FAXED [phone]. PER NOE, OSD CLERK [phone] AT [facility], UNABLE TO ACCEPT PATIENT AT THIS TIME. PER EDMOND AT [phone], OSD CLERK AT [facility], NO BEDS AVAILABLE. PER SAMI [phone], OSD CLERK OF [facility], THEY ARE NOT CONTRACTED WITH THE INSURANCE PER KAREN [phone] OF [facility], NO BEDS AVAILABLE AT THIS TIME.
--- NOTE | 2018-08-20 16:33 | NUR ---
Rn Patient Services Note: I called and spoke with Bethany from [facility] . She stated they cannot accept patient due to homelessness and hx of alcohol/substance abuse. I explained to her that patient is planning to go to his sister Vanna's home upon discharge in [place], [place] and told her she or another staff from their facility is welcome to meet with patient to evaluate. However, Bethany told me they cannot accept patient.
[2018-08-20] MEDS: MORPHINE SULFATE 4 MG/ML SYR IVP PRN ×2 (16:56→21:06)
--- NOTE | 2018-08-20 17:01 | NUR ---
ADMINISTERED PRN PAIN MED. DR QUIROGA AWARE OF HIGH BLOOD PRESSURE SHE SAID TO RECHECK B/P AFTER MORPHINE IS ADMINISTERED AND PATIENT RELIEVED OF PAIN, EDUCATED ON MEDS. WILL CONTINUE TO MONITOR
--- NOTE | 2018-08-20 19:16 | NUR ---
gave bedside report to car shifter nurse. patient endorsed in stable condition
--- NOTE | 2018-08-20 19:18 | NUR ---
RECEIVED REPORT FROM HUGO ABARCA AND ABBI ABARCA DAYSHIFT NURSE AT BEDSIDE FOR CONTINUITY OF CARE, PT IN STABLE CONDITION.
[2018-08-20] MEDS: ACETAMINOPHEN 325 MG TAB PO PRN (20:08)
--- NOTE | 2018-08-20 20:15 | NUR ---
PT IN BED AOX4, WITH DRESSING ON LEFT ARM INTACT WITH NO DRAINAGE NOTED. PT HAS C/O OF MILD PAIN 3/10, HE SAID THE PAIN IS STARTING TO RETURN IN HIS ARM. V/S FOLLOWS T 99.2 P 74 R 18 B/P 175/84 02 98% ON ROOM AIR. PT GIVEN PO/PRN TYLENOL FOR MILD PAIN AND VASOTEC FOR INCREASED B/P. WILL CONTINUE TO MONITOR PT FOR B/P AND TEMP. PICC LINE INTACT AND RUNNING N/S AT 50 ORDERED.
--- NOTE | 2018-08-20 21:10 | NUR ---
PT C/O OF SEVERE PAIN 7/10 IN LEFT ARM, WAS GIVEN IVP MORPHINE ORDERED. T 99.0 B/P 194/75, WILL RETAKE B/P WHEN PAIN MEDICATION STARTS TO HAVE POSITIVE EFFECT. ALL REQUESTED NEEDS ATTENDED AND CALL GENTILE IN REACH.
[2018-08-21] VITALS: BP 168/72
--- NOTE | 2018-08-21 | NUR ---
PT IN BED V/S FOLLOWS T 97.8 P 65 R 18 B/P 168/72 02 100%. PT ASLEEP NO C/O VOICED.
--- NOTE | 2018-08-21 01:00 | NUR ---
PT AWAKE AND C/O OF SEVERE PAIN, GIVEN MORPHINE ORDERED IVP WILL CONTINUER TO MONITOR FOR PAIN.
[2018-08-21] MEDS: MORPHINE SULFATE 4 MG/ML SYR IVP PRN ×2 (01:06→05:12)
[2018-08-21] MEDS: ENALAPRILAT 2.5 MG/2 ML VIAL IVP PRN (01:13)
[2018-08-21] MEDS: VANCOMYCIN 1GM/DEXT 5% PREMIX 200 ML IV SCH ×3 (05:11→20:17)
--- NOTE | 2018-08-21 05:15 | NUR ---
PT IN BED C/O SEVERE PAIN, GIVEN IVP/PRN MORPHINE. VANCOMYCIN HUNG ORDERED AND V/S FOLLOWS T 97.7 P 66 R 18 B/P 148/74 02 98% ON ROOM AIR.
[2018-08-21 05:28] VITALS: BP 148/74
--- NOTE | 2018-08-21 07:15 | NUR ---
REPORT GIVEN TO JENNA RN DAYSHIFT NURSE AT BEDSIDE FOR CONTINUITY OF CARE, PT IN STABLE CONDITION.
--- NOTE | 2018-08-21 07:16 | NUR ---
RECEIVED BEDSIDE REPORT FROM DIRECTOR OF DIGITAL TECHNOLOGY NURSE. PT SITTING UP IN BED RESTING. PT AOX4. BREATHING EQUAL UNLABORED WITH NO OBVIOUS SIGNS OF ACUTE DISTRESS. PHIL PICC LINE AND PHIL 20G, SL BOTH INTACT AND ASYMPTOMATIC. PT HAS NO REQUESTS AT THIS TIME. LEFT UPPER ARM DEBRIDEMENT AND RIGHT FOREARM I&D BOTH DRESSINGS CLEAN, DRY AND INTACT. TELE MONITOR IN PLACE. PATIENT IS CONTINENT, URINAL AT BEDSIDE. PT IS AMBULATORY. BED IN LOW POSITION. CALL LIGHT WITHIN REACH. WILL CONTINUE TO MONITOR THE PATIENT.
[2018-08-21 07:36] LABS: BASOPHILS # (AUTO) 0.1 K/uL (0.00-0.22); BASOPHILS % (AUTO) 1.1 % (0.0-2.0); EOSINOPHILS # (AUTO) 0.4 K/uL (0-0.4); EOSINOPHILS % (AUTO) 4.1 % (0.0-4.0); HEMATOCRIT 40.5 % (36-52); HEMOGLOBIN 13.6 g/dL (12.0-18.0); LYMPHOCYTES # (AUTO) 2.6 K/uL (2.0-11.5); LYMPHOCYTES % (AUTO) 24.7 % (20.5-51.1); MEAN CORPUSCULAR HEMOGLOBIN 29 pg (27-31); MEAN CORPUSCULAR HGB CONC 34 g/dL (33-37); MEAN CORPUSCULAR VOLUME 85.9 fL (80-94); MONOCYTES # (AUTO) 1.1 K/uL (0.8-1.0); MONOCYTES % (AUTO) 10.2 % (1.7-9.3); NEUTROPHILS # (AUTO) 6.2 K/uL (1.8-7.7); NEUTROPHILS % (AUTO) 59.9 % (42.2-75.2); PLATELET COUNT (AUTO) 488 K/uL (140-450); RED BLOOD CELL COUNT(AUTO) 4.71 MIL/uL (4.20-6.10); RED CELL DISTRIBUTION WIDTH 14.1 % (11.6-13.7); WHITE BLOOD COUNT (AUTO) 10.4 K/uL (4.8-10.8)
[2018-08-21 08:00] VITALS: BP 162/92
[2018-08-21 08:20] LABS: CREATININE 0.9 mg/dL (0.7-1.3)
[2018-08-21 08:30] LABS: MAGNESIUM 2.2 mg/dL (1.8-2.4); PHOSPHORUS 3.8 mg/dL (2.5-4.9)
[2018-08-21] MEDS: SODIUM PHOS / POTASSIUM PHOS 1 PKT PDR PO SCH (09:24)
[2018-08-21] MEDS: LACTOBACILLUS RHAMNOSUS GG 1 EACH CAP PO SCH (09:24)
[2018-08-21] MEDS: LISINOPRIL 10 MG TAB PO SCH (09:25)
--- NOTE | 2018-08-21 09:28 | NUR ---
MORNING MEDICATIONS ADMINISTERED, REVIEWED EDUCATION AND INDICATION OF MEDICATIONS WITH PT. PT IS COMFORTABLE IN BED AND DENIES REQUESTS FOR ANYTHING ELSE AT THIS TIME. NO OBVIOUS SIGNS OF ACUTE DISTRESS.
[2018-08-21] MEDS ORDERED: VANCOMYCIN PER PHARMACY MC PRN (09:50)
--- NOTE | 2018-08-21 10:32 | NUR ---
PER MARTINA, HAT BLOCKER OF [facility] AT [phone], NO MALE BEDS AVAILABLE AT THIS TIME.
[2018-08-21] MEDS: KETOROLAC 15 MG/ML VIAL IVP PRN ×2 (10:33→23:13)
--- NOTE | 2018-08-21 10:33 | NUR ---
PER COLETTE OF [facility] AT [phone], WILL REVIEW REFERRAL.
--- NOTE | 2018-08-21 11:00 | NUR ---
PATIENT RESTING IN BED. NO SIGNS OF DISTRESS. WILL CONTINUE TO MONITOR THE PATIENT
--- NOTE | 2018-08-21 11:07 | NUR ---
PER WHITLEY OF [facility] SKILL[facility], STILL REVIEWING THE CASE.
--- NOTE | 2018-08-21 11:07 | NUR ---
PER SACHI OF [facility], STILL REVIEWING THE CASE.
--- NOTE | 2018-08-21 11:12 | NUR ---
PER CARRY OF LEEANNA LUCAS, STILL REVIEWING THE CASE.
--- NOTE | 2018-08-21 11:23 | NUR ---
RECEIVED A CALL FROM SACHI GARCIA [facility], NO BEDS AVAILABLE AT THIS TIME.
[2018-08-21 12:00] VITALS: BP 145/86
--- NOTE | 2018-08-21 12:33 | NUR ---
ASSISTED PT UP TO CHAIR TO EAT LUNCH FACING WINDOW PER PT REQUEST. NO OBVIOUS SIGNS OF ACUTE DISTRESS, PT STATES HE IS COMFORTABLE WITH NO FURTHER REQUESTS.
[2018-08-21] MEDS ORDERED: NIFEdipine 30 MG TABER PO SCH (12:42)
--- NOTE | 2018-08-21 12:50 | NUR ---
SPOKE WITH COLETTE FROM [facility], SHE STATED THAT THEY ARE NOT CONTRACTED WITH THE INSURANCE FOR [facility] AND [facility] BUT THEY ARE WILLING TO ACCEPT THE PATIENT AND NEEDED LETTER OF AGREEMENT FROM INSURANCE CALLED MOHIT GARCIA [facility] TO UPDATE HER OF SNF PLACEMENT STATUS. SHE RECOMMENDED TO CONTACT [employer] [facility] DIRECTLY. CALLED [employer] [facility] AT [phone].
[2018-08-21] MEDS: oxyCODONE/APAP 5/325 MG 1 TAB TAB PO PRN ×2 (13:59→20:27)
--- NOTE | 2018-08-21 14:04 | NUR ---
ADMINISTERED MEDICATIONS, PT SITTING UP IN CHAIR WITH NO OBVIOUS SIGNS OF DISTRESS AND NO FURTHER REQUESTS AT THIS TIME.
--- NOTE | 2018-08-21 15:39 | NUR ---
WOUND CARE RE-EVALUATION NOTE: REASON FOR EVALUATION: SURGICAL WOUNDS SKIN ASSESSMENT DONE WITH PRIMARY RN WITH THIS 58 Y/O MALE PT S/P I&D SURGICAL WOUNDS TO LEFT ARM AND RIGHT ARM, PT TOLERATE WOUND TREATMENT, DR. QUIROGA AT BED SIDE WOUND SITES EVALUATED NEW ORDER START WITH ADAPTIC DRESSING AND PLAN FOR SNF PLACEMENT. PT . ABLE TO MOVE WRISTS AND ALL FINGERS X 1O. PLAN OF CARE DISCUSS WITH PRIMARY RN AND PT. PT VERBALIZES UNDERSTAND. INTEGUMENTARY: -RIGHT FOREARM SURGICAL WOUND 0.5X0.5X0.1CM, WOUND BED 100% GRANULATING TISSUE, MOIST, NO ODOR, PERIWOUND SKIN INTACT, PAIN 0/10 -LEFT LATERAL FOREARM SURGICAL WOUND 5X1X0.5CM, WOUND BED WITH 100% GRANULATING TISSUE, MOIST, NO ODOR, PERIWOUND SKIN INTACT, WOUND EDGE FLAT, NO TUNNELING, PAIN 3/10 -LEFT MEDIAL FOREARM SURGICAL WOUND 25X7X1.5CM, UNDERMINING BETWEEN 2-3 O'CLOCK 1 CM DEPTH. WOUND BED WITH 100% GRANULATING TISSUE, MOIST, NO ODOR, PERIWOUND SKIN INTACT, WOUND EDGE FLAT AND WELL DEFINED, PAIN 3/10 BEARABLE. RECOMMENDATIONS: -INCREASE RANGE OF MOTION TOLERATE TO LEFT ELBOW -IRRIGATE RIGHT ARM AND LEFT ARM SURGICAL WOUNDS WITH NS, APPLY ADAPTIC DRESSING TO WOUND BEDS, COVER WITH DRY DRESSING, WRAP WITH KERLIX ROLLS AND GIOVANNA BANDAGE QD AND PRN IF SOILING -TURN AND REPOSITION Q2H, OFFLOAD SACRALCOCCYX BY TURNING RIGHT AND LEFT -CONTINUE TO FOLLOW RD RECOMMENDATIONS ALL ABOVE RECOMMENDATIONS DISCUSSED WITH PRIMARY RN WILL FOLLOW UP PT Q7-10 DAYS. PLEASE CONTACT WOUND CARE NURSE FOR ANY QUESTION AND CHANGE OF WOUND CONDITION.
--- NOTE | 2018-08-21 15:49 | NUR ---
PATIENT SITTING IN BED. NO SIGNS OF DISTRESS WILL CONTINUE TO MONITOR
[2018-08-21 16:00] VITALS: BP 152/93
--- NOTE | 2018-08-21 16:10 | NUR ---
PT SITTING IN BED RESTING WITH NO REQUESTS AT THIS TIME AND NO OBVIOUS SIGNS OF DISTRESS.
--- NOTE | 2018-08-21 16:34 | NUR ---
Paperhanger Supervisor Note: Per Sand Wheeler Carolina of [facility] , according to their records patient has been medically stable for a couple of days and will most likely fax us a denial letter on Friday08/24/18 or before then, I informed of this and asked her if patient is medically stable. Per , she will contact Sand Wheeler Carolina and provide verbal clinical update on patient. Per Sand Wheeler Carolina, if home health services are needed [facility] can be contacted, home health auth [id number] and for home infusion [facility] can be contacted, she stated [facility] sometimes provides nursing staff.
--- NOTE | 2018-08-21 18:19 | NUR ---
PATIENT SITTING IN BED. NO SIGNS OF DISTRESS. WILL CONTINUE TO MONITOR THE PATIENT.
[2018-08-21] MEDS: NACL 0.9% 1,000 ML IV SCH (18:30)
--- NOTE | 2018-08-21 19:05 | NUR ---
RECEIVED REPORT FROM JENNA ABARCA AND XAVI RN DAYSHIFT NURSES FOR CONTINUITY OF CARE, PT IN STABLE CONDITION.
--- NOTE | 2018-08-21 19:05 | NUR ---
gave bedside report to security shift manager nurse. patient endorsed in stable condition
[2018-08-21 20:00] VITALS: BP 122/69
--- NOTE | 2018-08-21 20:00 | NUR ---
PT SITTING UP IN LOW BED WITH SIDE RIALS UP X2 ON THE PHONE NO S/S OF PAIN OR DISTRESS. PT SAID HE HAS SOME PAIN IN HIS LEFT ARM, BUT IS TOLERABLE AT THIS TIME. PT AOX4 HE HAS A DOUBLE LUMEN PIC ON R UPPER ARM INTACT AND RUNNING N/S AT 50. V/S T 97.1 P 73 R 18 B/P 122/69 02 98% ON ROOM AIR.
--- NOTE | 2018-08-21 20:30 | NUR ---
PT C/O OF SEVERE PAIN IN HIS ARM 7/10 IN LEFT ARM, PT GIVEN PO/PRN PERCOCET, WILL MONITOR FOR PAIN EFFECT. PT ASLO REQUEST SANDWICH AND JUICE WHICH WAS GIVEN REQUESTED.
--- NOTE | 2018-08-21 21:30 | NUR ---
PT AMBULATING IN A STEADY GAIT IN HALLWAY WITH IV POLE AND IV RUNNING N/S AT 50MLS/HR. PT SAID HE FELT BETTER.
--- NOTE | 2018-08-21 23:31 | NUR ---
PT GIVEN TORADOL 15MG IVP FOR MODERATE PAIN IN LEFT ARM 08/21. PT LEFT ARM BANDAGE REINFORCED.
[2018-08-22] VITALS: BP 127/50
--- NOTE | 2018-08-22 00:30 | NUR ---
PT IN BED RESTING POSITIVE EFFECT OF PAIN MEDS NOTED. N/S RUNNING AT 50MLS/HR ORDERED. PT RECEIVED CALL FROM AND SPOKE WITH HER BRIEFLY. V/S FOLLOWS T 97.3 P 63 R 18 B/P 127/50 02 97% ON ROOM AIR. DRESSING FOR LEFT ARM INTACT WELL R F/A. ALL REQUESTED NEEDS ATTENDED AND CALL GENTILE IN REACH.
--- NOTE | 2018-08-22 03:30 | NUR ---
PT IN LOW BED SIDE RAILS UP X2 AND CALL GENTILE IN REACH. PT RESTING WITH EYES CLOSED, BUT PT RESPONSIVE TO NAME AND LIGHT TOUCH. PT SANDY ANY PAIN OR DISTRESS AT THIS TIME, DRESSINGS FOR R AND L ARM INTACT. PICC LINE INTACT RUNNING N/S AT 50, AND FLUSHED PATENT. V/S FOLLOWS T 98.0 P 63 R 18 B/P 114/53 02 99% ON ROOM AIR.
[2018-08-22 04:00] VITALS: BP 114/53
[2018-08-22] MEDS: VANCOMYCIN 1GM/DEXT 5% PREMIX 200 ML IV SCH ×3 (05:30→20:47)
--- NOTE | 2018-08-22 05:30 | NUR ---
PT IN BED SLEEPING NO S/S OF PAIN OR DISTRESS NOTED, BED LOW AND SIDE RAILS UP X2. VANCO HUNG AND RUNNING AT 135MLS/HR ORDERED. PT WEIGHTED AT 91K OR 200.5LBS BY BED SCALE. NURSE DONNY PT BLOOD FOR LABS BY PICC LINE. WILL PROVIDE SAMPLE TO LAB. PT HAS NO C/O VOICED BED LOW AND LUDWIG GENTILE IN REACH. PT IS SLEEPING IN BED.
--- NOTE | 2018-08-22 07:15 | NUR ---
REPORT GIVEN TO LUCY RN AND XAVI RN AT BEDSIDE FOR CONTINUITY OF CARE, PT IN STABLE CONDITION.
--- NOTE | 2018-08-22 07:16 | NUR ---
RECEIVED BEDSIDE REPORT FROM DONOR RELATIONS MANAGER NURSE. PT SLEEPING AND AROUSABLE TO NAME AOX4. PICC LINE PHIL AND IV LINE PHIL INTACT ASYMPTOMATIC. NS 50ML/HR INFUSING. IV DRESSINGS AND IV LINES ASSESSED AND PATENT. DRESSING TO RIGHT ARM AND LEFT ARM CDI. PT BREATHING EQUAL AND UNLABORED WITH NO COMPLAINTS OR REQUESTS AT THIS TIME. ALL SAFETY PRECAUTIONS IN PLACE, WILL CONTINUE TO MONITOR.
[2018-08-22 07:56] LABS: ANION GAP 9.1 (8-16); CARBON DIOXIDE 28.2 mmol/L (21-32); POTASSIUM 4.3 mmol/L (3.5-5.1)
[2018-08-22 07:58] LABS: BASOPHILS # (AUTO) 0.1 K/uL (0.00-0.22); BASOPHILS % (AUTO) 1.2 % (0.0-2.0); EOSINOPHILS # (AUTO) 0.4 K/uL (0-0.4); HEMATOCRIT 37.3 % (36-52); HEMOGLOBIN 12.4 g/dL (12.0-18.0); LYMPHOCYTES # (AUTO) 2.9 K/uL (2.0-11.5); MEAN CORPUSCULAR HEMOGLOBIN 29 pg (27-31); MEAN CORPUSCULAR HGB CONC 33 g/dL (33-37); MEAN CORPUSCULAR VOLUME 86.9 fL (80-94); MONOCYTES # (AUTO) 0.9 K/uL (0.8-1.0); MONOCYTES % (AUTO) 8.9 % (1.7-9.3); NEUTROPHILS # (AUTO) 5.9 K/uL (1.8-7.7); PLATELET COUNT (AUTO) 419 K/uL (140-450); RED BLOOD CELL COUNT(AUTO) 4.29 MIL/uL (4.20-6.10); RED CELL DISTRIBUTION WIDTH 14.4 % (11.6-13.7); WHITE BLOOD COUNT (AUTO) 10.3 K/uL (4.8-10.8)
[2018-08-22 08:00] VITALS: BP 115/56
[2018-08-22 08:14] LABS: MAGNESIUM 2.2 mg/dL (1.8-2.4); PHOSPHORUS 4.5 mg/dL (2.5-4.9)
[2018-08-22] MEDS: LACTOBACILLUS RHAMNOSUS GG 1 EACH CAP PO SCH (08:27)
[2018-08-22] MEDS: NIFEdipine 30 MG TABER PO SCH (08:27)
[2018-08-22] MEDS: SODIUM PHOS / POTASSIUM PHOS 1 PKT PDR PO SCH (08:28)
[2018-08-22] MEDS: LISINOPRIL 10 MG TAB PO SCH (08:28)
[2018-08-22] MEDS: oxyCODONE/APAP 5/325 MG 1 TAB TAB PO PRN ×3 (08:35→20:47)
--- NOTE | 2018-08-22 08:36 | NUR ---
ADMINISTERED AM MEDICATIONS, REVIEWED INDICATIONS AND SIDE EFFECTS WITH PT. PT HAS NO REQUESTS OR OBVIOUS SIGNS OF DISTRESS AT THIS TIME.
[2018-08-22 09:23] LABS: EOSINOPHILS % (AUTO) 4.1 % (0.0-4.0); LYMPHOCYTES % (AUTO) 28.3 % (20.5-51.1); NEUTROPHILS % (AUTO) 57.5 % (42.2-75.2)
[2018-08-22] MEDS ORDERED: KETOROLAC 15 MG/ML VIAL IVP PRN (10:40)
[2018-08-22] MEDS: NACL 0.9% 1,000 ML IV SCH (11:00)
--- NOTE | 2018-08-22 11:00 | NUR ---
CHANGED PT IVF RATE PER MD ORDERS. PT SITTING UP IN BED WITHOUT OBVIOUS SIGNS OF DISTRESS. NO REQUESTS AT THIS TIME.
--- NOTE | 2018-08-22 11:30 | NUR ---
PT LAYING IN BED REQUESTING HELP WITH GETTING MORE ICE FOR HIS WATER AND NO OTHER REQUESTS AT THIS TIME. FREE OF OBVIOUS SIGNS OF DISTRESS OR DISCOMFORT.
[2018-08-22 12:00] VITALS: BP 121/54
--- NOTE | 2018-08-22 13:05 | NUR ---
ADMINISTERED MEDICATIONS PT RESTING IN BED WITH NO REQUESTS OR COMPLAINTS AT THIS TIME. NO OBVIOUS SIGNS OF DISTRESS.
[2018-08-22] MEDS: GAUZE TP SCH (14:50)
--- NOTE | 2018-08-22 14:57 | NUR ---
WOUND DRESSINGS ON BOTH ARMS CHANGED. SEE WOUND ASSESSMENT.
[2018-08-22 16:00] VITALS: BP 106/61
--- NOTE | 2018-08-22 17:15 | NUR ---
PT RESTING IN BED, NO C/O PAIN OR DISCOMFORT. WILL CONTINUE TO MONITOR.
--- NOTE | 2018-08-22 19:08 | NUR ---
ENDORSED POC TO INSPECTOR GRAIN MILL PRODUCTS RN. PT IN STABLE CONDITION.
--- NOTE | 2018-08-22 19:09 | NUR ---
RECEIVED BEDSIDE REPORT FROM WON RN. NURSE. PT IS AAOX4. ON ROOM AIR. RESPIRATIONS ARE EQUAL AND UNLABORED. PICC LINE PHIL AND IV LINE PHIL INTACT ASYMPTOMATIC. NS 30ML/HR INFUSING. DRESSING TO RIGHT ARM AND LEFT ARM C/D/I. I&D AND DEBRIDEMENT DONE WITH DR FRIED ON 08/17. ALL SAFETY PRECAUTIONS IN PLACE, CALL LIGHT WITHIN REACH. WILL CONTINUE TO MONITOR.
[2018-08-22 20:00] VITALS: BP 136/61
--- NOTE | 2018-08-22 20:47 | NUR ---
VITAL SIGNS ARE WITHIN NORMAL LIMITS. SCHEDULED MEDICATION NOW INFUSING. PATIENT STATES ARM PAIN 7/10 PERCOCET GIVEN PER ORDERS. SAFETY MEASURES ARE IN PLACE. WILL CONTINUE TO MONITOR.
[2018-08-23] VITALS: BP 128/43
--- NOTE | 2018-08-23 | NUR ---
VITAL SIGNS ARE WITHIN NORMAL LIMITS. ADMINISTERED TYLENOL FOR MILD PAIN. DRESSING ON BOTH ARMS ARE C/D/I. DRESSING CHANGED DURING DAY. ALL NEEDS MET AT THIS TIME. WILL CONTINUE TO MONITOR.
[2018-08-23] MEDS: ACETAMINOPHEN 325 MG TAB PO PRN (00:13)
--- NOTE | 2018-08-23 02:15 | NUR ---
PATIENT IS SLEEPING COMFORTABLY IN BED. RESPIRATIONS ARE EQUAL AND UNLABORED.
[2018-08-23] MEDS: oxyCODONE/APAP 5/325 MG 1 TAB TAB PO PRN ×4 (02:53→22:53)
--- NOTE | 2018-08-23 02:53 | NUR ---
ADMINISTERED PAIN MEDICATION FOR PAIN 10/21. REINFORCED DRESSING ON LEFT FA. PT TOLERATED WELL. WILL CONTINUE TO MONITOR.
[2018-08-23 04:00] VITALS: BP 137/44
--- NOTE | 2018-08-23 04:00 | NUR ---
VITAL SIGNS ARE WITHIN NORMAL LIMITS. SAFETY MEASURES ARE IN PLACE. WILL CONTINUE TO MONITOR.
[2018-08-23] MEDS: VANCOMYCIN 1GM/DEXT 5% PREMIX 200 ML IV SCH ×3 (04:28→20:09)
[2018-08-23] MEDS ORDERED: MORPHINE SULFATE 2 MG/ML SYR IVP SCH (05:00)
--- NOTE | 2018-08-23 07:27 | NUR ---
GAVE BEDSIDE REPORT TO LUCY ABARCA. PT ENDORSED IN STABLE CONDITION.
--- NOTE | 2018-08-23 07:30 | NUR ---
RECEIVED BEDSIDE REPORT FROM DIGITAL COMMENTATOR NURSE. PT IS AOX4, PLEASANT AND COOPERATIVE, INTERACTING APPROPRIATELY. STATES 2/10 TOLERABLE PAIN TO LEFT FOREARM. DRESSING TO RIGHT ARM AND LEFT ARM CDI- SEE WOUND ASSESSMENT. PICC LINE PHIL DOUBLE LUMEN AND IV LINE PHIL INTACT AND ASYMPTOMATIC. NS 30ML/HR INFUSING THROUGH RT UA PICC. PT BREATHING EQUAL AND UNLABORED. HEART RHYTHM REGULAR. NO LOWER EXTREMITY EDEMA. PT IS AMBULATORY WITHOUT ASSIST. ALL SAFETY PRECAUTIONS IN PLACE, WILL CONTINUE TO MONITOR.
[2018-08-23 07:43] LABS: ANION GAP 11.4 (8-16); CARBON DIOXIDE 26.4 mmol/L (21-32); POTASSIUM 4.8 mmol/L (3.5-5.1)
[2018-08-23 07:45] LABS: MAGNESIUM 2.1 mg/dL (1.8-2.4); PHOSPHORUS 3.6 mg/dL (2.5-4.9)
[2018-08-23 07:55] LABS: BASOPHILS # (AUTO) 0.1 K/uL (0.00-0.22); EOSINOPHILS # (AUTO) 0.5 K/uL (0-0.4); HEMATOCRIT 35.5 % (36-52); LYMPHOCYTES # (AUTO) 3.1 K/uL (2.0-11.5); LYMPHOCYTES % (AUTO) 29.4 % (20.5-51.1); MEAN CORPUSCULAR HEMOGLOBIN 29 pg (27-31); MEAN CORPUSCULAR HGB CONC 34 g/dL (33-37); MEAN CORPUSCULAR VOLUME 86.5 fL (80-94); MONOCYTES # (AUTO) 0.9 K/uL (0.8-1.0); MONOCYTES % (AUTO) 8.4 % (1.7-9.3); NEUTROPHILS % (AUTO) 56.7 % (42.2-75.2); PLATELET COUNT (AUTO) 423 K/uL (140-450); RED BLOOD CELL COUNT(AUTO) 4.11 MIL/uL (4.20-6.10); RED CELL DISTRIBUTION WIDTH 14.5 % (11.6-13.7); WHITE BLOOD COUNT (AUTO) 10.5 K/uL (4.8-10.8)
[2018-08-23 08:00] VITALS: BP 110/59
[2018-08-23] MEDS: LACTOBACILLUS RHAMNOSUS GG 1 EACH CAP PO SCH (08:46)
[2018-08-23] MEDS: LISINOPRIL 10 MG TAB PO SCH (08:46)
[2018-08-23] MEDS: NIFEdipine 30 MG TABER PO SCH (08:47)
[2018-08-23] MEDS: SODIUM PHOS / POTASSIUM PHOS 1 PKT PDR PO SCH (08:47)
--- NOTE | 2018-08-23 08:51 | NUR ---
ADMINISTERED SCHEDULED MEDICATIONS. PT C/O 11/21 PAIN, ADMINISTERED PERCOCET. WILL CONTINUE TO MONITOR.
[2018-08-23 08:59] LABS: EOSINOPHILS % (AUTO) 4.5 % (0.0-4.0)
--- NOTE | 2018-08-23 13:18 | NUR ---
SCHEDULED IV ABX ADMINISTERED. PT RESTING COMFORTABLY IN BED. ALL NEEDS MET AT THIS TIME.
[2018-08-23 16:00] VITALS: BP 140/68
[2018-08-23] MEDS: NACL 0.9% 1,000 ML IV SCH (16:29)
[2018-08-23] MEDS: GAUZE TP SCH (16:52)
--- NOTE | 2018-08-23 19:17 | NUR ---
ENDORSED TO INFECTION CONTROL SPECIALIST NURSE. PATIENT IS STABLE.
--- NOTE | 2018-08-23 19:18 | NUR ---
RECEIVED BEDSIDE REPORT FROM LUCY ABARCA. NURSE. PT IS AAOX4. ON ROOM AIR. RESPIRATIONS ARE EQUAL AND UNLABORED. PICC LINE PHIL AND IV LINE PHIL INTACT ASYMPTOMATIC. NS 10ML/HR INFUSING. DRESSING TO RIGHT ARM AND LEFT ARM C/D/I. S/P I&D AND DEBRIDEMENT DONE WITH DR FRIED ON 08/17. ALL SAFETY PRECAUTIONS IN PLACE, CALL LIGHT WITHIN REACH. WILL CONTINUE TO MONITOR.
--- NOTE | 2018-08-23 20:09 | NUR ---
SCHEDULED VANCO NOW INFUSING PER ORDERS. ANSWERED ALL QUESTIONS AND CONCERNS FROM PATIENT AND FAMILY. ALL NEEDS MET AT THIS TIME. CALL LIGHT WITHIN REACH.
--- NOTE | 2018-08-23 22:00 | NUR ---
PATIENT IS IN ROOM 120 VISITING . NO S/S OF DISTRESS. STATES PAIN TOLERABLE. WILL CONTINUE TO MONITOR.
[2018-08-24] VITALS: BP 131/58
--- NOTE | 2018-08-24 00:19 | NUR ---
VITAL SIGNS ARE WITHIN NORMAL LIMITS. ALL NEEDS MET AT THIS TIME. WILL CONTINUE TO MONITOR.
[2018-08-24] MEDS: VANCOMYCIN 1GM/DEXT 5% PREMIX 200 ML IV SCH ×2 (04:28→14:51)
[2018-08-24] MEDS: oxyCODONE/APAP 5/325 MG 1 TAB TAB PO PRN ×3 (04:51→21:41)
--- NOTE | 2018-08-24 04:51 | NUR ---
ADMINISTERED PERCOCET FOR PAIN 12/22. REINFORCED DRESSING. PATIENT TOLERATED WELL. CALL LIGHT WITHIN REACH. WILL CONTINUE TO MONITOR.
--- NOTE | 2018-08-24 07:25 | NUR ---
GAVE BEDSIDE REPORT TO CHAIRMAINE RN. ENDORSED IN STABLE CONDITION.
--- NOTE | 2018-08-24 07:26 | NUR ---
RECEIVED BEDSIDE REPORT FROM FIRE BATTALION CHIEF NURSE. PATIENT ON MED SURGE AND STANDARD PRECAUTIONS IN PLACE. PATIENT AAOX4 AND COMMUNICATES APPROPRIATELY. S/P I&D OF R FA ABSCESS, L FA CELLULITIS DRESSINGS CLEAN DRY AND INTACT. PATIENT AMBULATORY AND CONTINENT. PHIL PICC LINE INFUSING NS AT 10, IV ASYMPTOMATIC PATENT AND INTACT. BED IN LOW POSITION, CALL LIGHT WITHIN REACH, SIDE RAILS X2 UP
[2018-08-24 08:00] VITALS: BP 135/68
[2018-08-24 08:41] LABS: ANION GAP 8.5 (8-16); CARBON DIOXIDE 28.6 mmol/L (21-32); CREATININE 1.1 mg/dL (0.7-1.3); POTASSIUM 4.1 mmol/L (3.5-5.1)
[2018-08-24 08:49] LABS: MAGNESIUM 2.3 mg/dL (1.8-2.4); PHOSPHORUS 3.7 mg/dL (2.5-4.9)
[2018-08-24 08:50] LABS: BASOPHILS # (AUTO) 0.1 K/uL (0.00-0.22); BASOPHILS % (AUTO) 0.6 % (0.0-2.0); EOSINOPHILS # (AUTO) 0.5 K/uL (0-0.4); EOSINOPHILS % (AUTO) 4.9 % (0.0-4.0); HEMATOCRIT 34.3 % (36-52); HEMOGLOBIN 11.5 g/dL (12.0-18.0); LYMPHOCYTES # (AUTO) 2.5 K/uL (2.0-11.5); MEAN CORPUSCULAR HEMOGLOBIN 29 pg (27-31); MEAN CORPUSCULAR HGB CONC 34 g/dL (33-37); MEAN CORPUSCULAR VOLUME 86.7 fL (80-94); MONOCYTES # (AUTO) 0.8 K/uL (0.8-1.0); MONOCYTES % (AUTO) 8.5 % (1.7-9.3); NEUTROPHILS # (AUTO) 5.6 K/uL (1.8-7.7); PLATELET COUNT (AUTO) 356 K/uL (140-450); RED BLOOD CELL COUNT(AUTO) 3.96 MIL/uL (4.20-6.10); RED CELL DISTRIBUTION WIDTH 14.5 % (11.6-13.7); WHITE BLOOD COUNT (AUTO) 9.4 K/uL (4.8-10.8)
[2018-08-24] MEDS: SODIUM PHOS / POTASSIUM PHOS 1 PKT PDR PO SCH (09:25)
[2018-08-24] MEDS: NIFEdipine 30 MG TABER PO SCH (09:25)
[2018-08-24] MEDS: LACTOBACILLUS RHAMNOSUS GG 1 EACH CAP PO SCH (09:25)
[2018-08-24] MEDS: LISINOPRIL 10 MG TAB PO SCH (09:26)
--- NOTE | 2018-08-24 09:29 | NUR ---
ADMINISTERED SCHEDULED MEDS. PATIENT TOLERATED WELL
--- NOTE | 2018-08-24 11:25 | NUR ---
PATIENT SLEEPING, ON ROOM AIR, NO DISTRESS NOTED
[2018-08-24] MEDS: GAUZE TP SCH (13:00)
--- NOTE | 2018-08-24 14:30 | NUR ---
PATIENT WALKING AROUND UNIT, NO DISTRESS NOTED ON ROOM AIR
--- NOTE | 2018-08-24 14:50 | NUR ---
Box Finisher Note: Per Senior Game Advisor Carolina of [facility] , we have to find a snf that is contracted with [facility]. She reported if an accepting snf is found that is not contracted with [facility], we can ask [facility] to assist with letter of agreement (ALEXANDRU). Senior Game Advisor Kandy and I attempted several times determining who was assigned Senior Game Advisor from [facility]. However, our phone calls to [facility] were not successful. I requested assistance from Assistant Media Planner Rosa . Daniela called [facility] and was informed by [facility] they are not responsible for ALEXANDRU and referred her back to [facility]. I called Carolina and relayed information Daniela provided me with. Per Carolina, [facility] is responsible for ALEXANDRU and is not surprised they said they are not. She recommends patient to be referred to [facility] or [facility] / fax number . Per , it okay to refer to [facility]. I faxed inquiries to both [facility] and [facility]. Per Natali from [facility], they cannot accept patient since they are not contracted with [facility]. Per Stacia from [facility] , they cannot accept patient due to substance abuse. Addendum: 08/24/18 at 1500 by Neda Krishnan SS Per Noemi from [facility] , they are having financial issues with [facility] at this time, unable to accept patient. Per Susana from [facility] , they cannot accept patient due to substance abuse. Addendum: 08/25/18 at 0836 by Neda PERRY Late entry for 08/24/18: Per Leda from [facility] , they do not have any male beds available at this time. Per Yolanda from [facility] , they do not have any male beds available at this time, she stated they might have one tomorrow. If they do have one, she will come to hospital to evaluate patient. Addendum: 08/25/18 at 3995 by Neda PERRY Per Rehana from [facility] / fax number , they cannot accept patient due to homelessness. Per Trixie from [facility] , they cannot accept patient due to homelessness.
--- NOTE | 2018-08-24 15:18 | NUR ---
08/24/18 RD FOLLOW UP COMPLETED PLEASE REFER TO NUTRITION ASSESSMENT UNDER CARE ACTIVITY FOR ESTIMATED NUTRITIONAL NEEDS. 1. CONTINUE REGULAR DIET TOLERATED 2. CONTINUE BRAULIO BID 3. SNACKS BID AND HEALTH SHAKES TID WILL BE PROVIDED BY [facility] FOR ADDITIONAL CALORIES NEEDED 4. RD TO FOLLOW-UP 5-7 DAYS, LOW RISK BRUNO BRENNER, RD
[2018-08-24 16:00] VITALS: BP 133/35
--- NOTE | 2018-08-24 16:00 | NUR ---
CLEANSED L FA INCISION AND R ABSCESS. CHANGED DRESSINGS AND APPLIED KERLIX WRAP, PATIENT TOLERATED WELL
[2018-08-24] MEDS: NACL 0.9% 1,000 ML IV SCH ×2 (17:02→21:43)
[2018-08-24] MEDS: cefTRIAXone 2,000 MG in DEXTROSE 5% 100 ML IV SCH (18:11)
--- NOTE | 2018-08-24 18:17 | NUR ---
PATIENT EATING DINNER, ADMINISTERED SCHEDULED MEDS. PATIENT TOLERATED WELL
--- NOTE | 2018-08-24 19:20 | NUR ---
BEDSIDE REPORT GIVEN TO RIMA DELGADILLO. PATIENT ENDORSED IN STABLE CONDITION
--- NOTE | 2018-08-24 19:21 | NUR ---
RECEIVED BEDSIDE REPORT FROM MERY ABARCA. A/O X4. ABLE TO MAKE NEEDS KNOWN. AMBULATORY. R AND L FA DRESSINGS CLEAN DRY INTACT. NO DRAINAGE. R UPPER ARM PICC LINE INFUSING WELL. TKO. CLEAN DRY INTACT. BED IN LOW POSITION. CALL LIGHT WITHIN REACH. WILL CONTINUE TO MONITOR.
--- NOTE | 2018-08-24 21:00 | NUR ---
AMBULATES TO THE RESTROOM. STEADY GAIT. NO SIGN OF DISTRESS NOTED. NO COMPLAINTS AT THIS TIME. WILL CONTINUE TO MONITOR.
--- NOTE | 2018-08-24 22:41 | NUR ---
PT STABLE SITTING UP IN BED WATCHING TV. NO SIGNS OF RESP DISTRESS OR DISCOMFORT. DENIES PAIN. WILL CONTINUE TO MONITOR.
[2018-08-25] VITALS: BP 149/78
--- NOTE | 2018-08-25 | NUR ---
VITALS TAKEN. TOLERATED WELL. NO COMPLAINTS AT THIS TIME. WILL CONTINUE TO MONITOR.
--- NOTE | 2018-08-25 01:00 | NUR ---
PT REFUSED DRESSING CHANGE. WANTS TO SLEEP. NO SIGNS OF DISTRESS NOTED. WILL CONTINUE TO MONITOR.
--- NOTE | 2018-08-25 02:00 | NUR ---
PT SLEEPING IN BED EASILY AROUSABLE. NO COMPLAINTS AT THIS TIME. WILL CONTINUE TO MONITOR.
[2018-08-25] MEDS: oxyCODONE/APAP 5/325 MG 1 TAB TAB PO PRN ×2 (03:56→17:38)
--- NOTE | 2018-08-25 03:57 | NUR ---
ADMINISTERED PRN PAIN MED. EDUCATED ON SIDE EFFECTS. VERBALIZED UNDERSTANDING. TOLERATED WELL. WILL CONTINUE TO MONITOR.
--- NOTE | 2018-08-25 06:02 | NUR ---
BLOOD WITHDRAW FROM PICC LINE R UPPER ARM. NO SIGNS OF DISTRESS OR DISCOMFORT. TOLERATED WELL. WILL CONTINUE TO MONITOR.
[2018-08-25 06:21] LABS: BASOPHILS # (AUTO) 0.1 K/uL (0.00-0.22); BASOPHILS % (AUTO) 0.9 % (0.0-2.0); EOSINOPHILS # (AUTO) 0.5 K/uL (0-0.4); EOSINOPHILS % (AUTO) 5.5 % (0.0-4.0); HEMATOCRIT 36.8 % (36-52); HEMOGLOBIN 12.4 g/dL (12.0-18.0); LYMPHOCYTES # (AUTO) 2.2 K/uL (2.0-11.5); LYMPHOCYTES % (AUTO) 23.9 % (20.5-51.1); MEAN CORPUSCULAR HEMOGLOBIN 29 pg (27-31); MEAN CORPUSCULAR HGB CONC 34 g/dL (33-37); MEAN CORPUSCULAR VOLUME 86.7 fL (80-94); MONOCYTES # (AUTO) 0.8 K/uL (0.8-1.0); MONOCYTES % (AUTO) 8.7 % (1.7-9.3); NEUTROPHILS # (AUTO) 5.6 K/uL (1.8-7.7); PLATELET COUNT (AUTO) 393 K/uL (140-450); RED BLOOD CELL COUNT(AUTO) 4.25 MIL/uL (4.20-6.10); RED CELL DISTRIBUTION WIDTH 14.6 % (11.6-13.7); WHITE BLOOD COUNT (AUTO) 9.1 K/uL (4.8-10.8)
[2018-08-25 06:41] LABS: ANION GAP 10.4 (8-16); CARBON DIOXIDE 28.6 mmol/L (21-32)
[2018-08-25 06:59] LABS: PHOSPHORUS 3.7 mg/dL (2.5-4.9)
[2018-08-25 07:26] LABS: MAGNESIUM 2.2 mg/dL (1.8-2.4)
--- NOTE | 2018-08-25 07:26 | NUR ---
ENDORSED PT TO AM SHIFT RN FOR CONTINUITY OF CARE. PT IN STABLE CONDITION.
--- NOTE | 2018-08-25 07:35 | NUR ---
RECEIVED PT FROM LUMBER STRAIGHTENED NURSE, PT IS ASLEEP AND SIDE RAILS ARE UP AND CALL LIGHT WITHIN REACH, PT HAS BILATERAL ARM CELLULITIS AND ARE REINFORCED WITH DRESSING, PT HAS A PICC LINE ON THE RT UA WITH NS INFUSING AT 10ML/HR, INTACT, PT HAS AOX4 AND SATURATING GOOD AT ROOM AIR AND RESPIRATION IS EVEN AND NO SIGN OF DISTRESS NOTED. WILL CONTINUE TO MONITOR PT.
[2018-08-25 08:00] VITALS: BP 159/77
--- NOTE | 2018-08-25 08:15 | NUR ---
PT IS AWAKE AND VITAL SIGNS TAKEN AND RESULT IS BP IS 159/77, PULSE IS 89, TEMPERATURE IS 98.1, O2 SATURATION NIS 96% AND RESPIRATION IS 18/MIN. NO SIGN NOF DISTRESS NOTED AND WILL MONITOR PT.
[2018-08-25] MEDS ORDERED: VANCOMYCIN 1,250 MG in NACL 0.9% 250 ML IV SCH (09:00)
[2018-08-25] MEDS: SODIUM PHOS / POTASSIUM PHOS 1 PKT PDR PO SCH (09:01)
[2018-08-25] MEDS: NIFEdipine 30 MG TABER PO SCH (09:02)
[2018-08-25] MEDS: LACTOBACILLUS RHAMNOSUS GG 1 EACH CAP PO SCH (09:02)
[2018-08-25] MEDS: LISINOPRIL 10 MG TAB PO SCH (09:02)
[2018-08-25] MEDS ORDERED: NIFE30TE98 PO (12:11)
[2018-08-25] MEDS ORDERED: ACET-9494 PO (12:11)
[2018-08-25] MEDS ORDERED: LISI10TA11 PO (12:11)
[2018-08-25] MEDS ORDERED: ROC2I IV (12:11)
[2018-08-25] MEDS ORDERED: DOCU-299 PO (12:11)
[2018-08-25] MEDS ORDERED: LACT10CA PO (12:11)
[2018-08-25] MEDS: GAUZE TP SCH (13:00)
--- NOTE | 2018-08-25 16:04 | NUR ---
CALLED [facility], SPOKE TO YANCY, PATIENT WILL GO TO ROOM 2A, UNDER DR MILLER.
--- NOTE | 2018-08-25 16:27 | NUR ---
Senior Quality Engineer Note: Note for earlier today: I called and spoke with Taiwo from [facility] , I explained to him I was trying to speak with someone from [facility] regarding Letter of Agreement (ALEXANDRU). He instructed me to contact [facility] Care Dept at [facility] and speak with someone at this dept regarding initiating process of ALEXANDRU. I informed Taiwo patient has been clinically accepted at [facility]. I called and spoke with Alisha at [employer] Care Dept from [facility]. Per Alisha, as long as [facility] authorizes snf placement, [facility] can initiate process of ALEXANDRU. I told Alisha I had already talked to Cook Starch Carolina at [facility] and she was aware patient needs snf placement. Alisha told me she needed to speak with Carolina herself. I provided Alisha with Carolina's phone number. Alisha spoke with Carolina. Per Alisha, they will begin ALEXANDRU process. I called Taiwo Carrillo and provided him with an update regarding my conversation with Alisha. Per Taiwo, he will speak with Evy at [facility] regarding ALEXANDRU and call me back. Taiwo called me back and told me he finalized ALEXANDRU. Per Carolina from [facility], [employer] can be used for transportation services to [facility], authorization for transportation is [id number]
--- NOTE | 2018-08-25 16:45 | NUR ---
CALLED [employer], SPOKE TO [facility] FOR TRANSPORTATION, AUTH#[id number]. [facility]ONANCE IMAGING COORDINATOR WILL BE AT 1830 REF # [id number]. PRIMARY RN RIGOBERTO AND CHARGE NURSE MADE AWARE.
--- NOTE | 2018-08-25 17:14 | NUR ---
Storage Facility Housekeeper Note: Per Golf Ball Molder Carolina from [facility], as long as MD's order for urgent plastic surgery/hand surgery referral for repair of left forearm status post fasciotmy is faxed to her, she will arrange outpatient appt. I faxed order to her, fax number . I met with patient at bedside. I informed him [facility] has accepted him and will be transferred there today. He thanked me for assistance. I provided him with a hospitalization verification letter per his request.
--- NOTE | 2018-08-25 17:38 | NUR ---
PT WAS GIVEN PAIN MEDICATION, PARAMETERS CHECKED AND WOUND ASSESSMENT WAS DONE AND PICTURE WERE TAKEN AND ATTACHED TO CHART.
[2018-08-25] MEDS: cefTRIAXone 2,000 MG in DEXTROSE 5% 100 ML IV SCH (18:00)
--- NOTE | 2018-08-25 18:01 | NUR ---
CALLED [facility] AT [phone] [place] [phone], AND GAVE REPORT TO DINORA HUDSON. PT WILL BE GOING TO 2-A UNDER THE SERVICE OF DR. MILLER AND PT WILL BE TRANSPORTED BY [employer] AND WILL BE PICKED UP AT 1830. PT WILL BE CONTINUED WITH [facility]EPH[facility] 2G. QD FOR 3 WEEKS, FOR WOUND CARE AND PHYSICAL THERAPY AND FOR URGENT REFERRAL FOR PLASTIC SURGERY OUTPATIENT. DINORA HUDSON VERBALIZED UNDERSTANDING
[2018-08-25] MEDS ORDERED: ACET-5636 PO (18:05)
--- NOTE | 2018-08-25 18:40 | NUR ---
DISCHARGED PT VIA [employer] [facility]SP[facility], INSTRUCTIONS AND PRESCRIPTION WERE GIVEN TO PT AND VERBALIZED UNDERSTANDING. IV AND ARM BANDS REMOVED AND PT IS STABLE AT THIS TIME.
== END 2018-08-25 18:40 | DRG 364 ==
LOC: MED 12:54 → MTU 16:26
PROVIDERS: ADMIT General Practice; ATTEND General Practice
PROC: 0X9D0ZZ Drainage of Right Lower Arm, Open Approach (ICD-10-PCS; principal; 2018-08-16)
PROC: 0J9F0ZZ Drainage of Left Upper Arm Subcutaneous Tissue and Fascia, Open Approach (ICD-10-PCS; 2018-08-17)
PROC: 0KBB0ZZ Excision of Left Lower Arm and Wrist Muscle, Open Approach (ICD-10-PCS; 2018-08-17)
PROC: 02HV33Z Insertion of Infusion Device into Superior Vena Cava, Percutaneous Approach (ICD-10-PCS; 2018-08-18)
PROC: B548ZZA Ultrasonography of Superior Vena Cava, Guidance (ICD-10-PCS; 2018-08-18)
DX: L03.114 Cellulitis of left upper limb (principal); I33.0 Acute and subacute infective endocarditis; E43 Unspecified severe protein-calorie malnutrition; M72.6 Necrotizing fasciitis; E83.51 Hypocalcemia; E83.39 Other disorders of phosphorus metabolism; E87.1 Hypo-osmolality and hyponatremia; L03.113 Cellulitis of right upper limb; E87.6 Hypokalemia; I10 Essential (primary) hypertension; L02.414 Cutaneous abscess of left upper limb; Z96.651 Presence of right artificial knee joint; L02.413 Cutaneous abscess of right upper limb; F11.10 Opioid abuse, uncomplicated; F15.10 Other stimulant abuse, uncomplicated; B95.4 Other streptococcus as the cause of diseases classified elsewhere; D64.9 Anemia, unspecified; Z87.891 Personal history of nicotine dependence; Z59.0 Homelessness; Z68.27 Body mass index [BMI] 27.0-27.9, adult
CPT/HCPCS: 36415; 71045; 73201; 80048; 80053; 80202; 80305; 81003; 83036; 83605; 83690; 83735; 84100; 84134; 84443; 85025; 85610; 85730; 86140; 86886; 86900; 86901; 87040; 87070; 87075; 87081; 87086; 87205; 93005; 93970; 96365; 96375; 99285; C1751; J0360; J0696; J1170; J1644; J1885; J2001; J2250; J2270; J2543; J2704; J3010; J3370; J3480; J3490; J7030; J7060; Q0092; Q9967

== ENCOUNTER 2019-04-18 19:13 | Emergency (ER) | payer MEDICAID ==
[~2019-04-18] VITALS: Ht 182.9 cm; Wt 81.6 kg
[2019-04-18 19:13] VITALS: BP 198/102
[~2019-04-18 19:13] MED LIST: ACET-5636 PO; ACET-9494 PO; DOCU-299 PO; LACT10CA PO; LISI10TA11 PO; NIFE30TE98 PO; ROC2I IV
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
[2019-04-18] MEDS ORDERED: hydrALAZINE 20 MG/ML VIAL IM ONE (20:10)
--- NOTE | 2019-04-18 20:12 | NUR ---
VS TAKEN, 190/104, HR 73, REPORTS 7/[address] MORTON MADE AWARE.
--- NOTE | 2019-04-18 20:14 | NUR ---
PT TAKEN TO XR
[2019-04-18 21:40] VITALS: BP 184/99
--- NOTE | 2019-04-18 21:40 | NUR ---
PREBOOK Patient discharged with v/s stable. Written and verbal after care instructions given and explained. Patient verbalized understanding.PT IS WITH [facility] with in custody. All questions addressed prior to discharge. Advised to follow up with PMD.
== END 2019-04-18 21:40 ==
LOC: MED 19:13
DX: M54.5 Low back pain (principal); M25.561 Pain in right knee; I10 Essential (primary) hypertension; Z02.89 Encounter for other administrative examinations; Z79.899 Other long term (current) drug therapy; V89.2XXA Person injured in unspecified motor-vehicle accident, traffic, initial encounter; Y93.89 Activity, other specified; Y92.89 Other specified places as the place of occurrence of the external cause; Y99.8 Other external cause status
CPT/HCPCS: 72040; 73562; 96372; 99283; J0360